=== PATIENT | male | born 1990 | race Caucasian/White ===

== ENCOUNTER 2024-03-28 17:27 | Emergency (ER) | payer OTHER, SELFPAY ==
--- NOTE | ~2024-03-28 | XR_ITS ---
EXAMINATION: XR pelvis 1-2V, XR sacrum coccyx min 2V DATE: 03/28/2024 18:39 INDICATION: Pelvic pain with large posterior hematoma post fall TECHNIQUE: 1. An anteroposterior view of the pelvis was obtained. 2. 3 views of the sacrum and coccyx were obtained including AP views of the sacrum, AP views of the c occyx and lateral views of the sacrum and coccyx. COMPARISON: None. FINDINGS: Bone alignment is normal. Sacral arches are intact. No fractures. Bilateral hip and sacroiliac joint spaces are normal. Visualized lower lumbar spine demonstrates normal vertebral body and disc heights. Subcutaneous edema posterior to the sacrum consistent with likely postoperative contusion. IMPRESSION: 1. No osseous abnormality. Reviewed, dictated and finalized at location A. IMPRESSION: 1. No osseous abnormality. IMPRESSION: 1. No osseous abnormality.
--- NOTE | 2024-03-28 18:26 | ED.GENADULT ---
HPI - General Adult General Chief complaint: Extremity Injury, Lower Stated complaint: Fall Injury/Left Side Source: patient Mode of arrival: ambulatory Limitations: no limitations History of Present Illness HPI narrative: Patient presents for evaluation after experiencing a fall yesterday. He slipped on some wooden steps outside and landed on his buttocks. He did not hit his head. No LOC. He is not on blood thinners. He now reports pain in the posterior pelvis and left buttock. He rates his pain 10/10 in severity. He tried taking ibupofen 800mg without much improvement thereafter. Sitting and palpation of the affected area makes his symptoms worse. Related Data Allergies Allergy/AdvReac Type Severity Reaction Status Date / Time Unable to Assess Allergy Verified 03/28/24 17:43 Review of Systems Review of Systems: CONSTITUTIONAL: Denies fever, chills, or sweats. EYES: Denies visual changes, redness, or discharge. ENT: Denies rhinorrhea, congestion, sore throat, or otalgia. CARDIOVASCULAR: Denies chest pain, palpitations, or edema. RESPIRATORY: Denies cough or dyspnea. GASTROINTESTINAL: Denies abdominal pain, nausea, vomiting, or diarrhea. GENITOURINARY: Denies dysuria or hematuria. SKIN: Denies rash or itching. MUSCULOSKELETAL: Reports pain over posterior pelvis and left buttock NEUROLOGIC: Denies headache, numbness, dizziness, or weakness. PSYCHIATRIC: Denies anxiety or depression. PMFSH Past Medical History Medical History Hyperlipidemia Surgical History Surgical History No pertinent past surgical history Family History Family History Mother Family history non-contributory Social History Social History Smoking status: Never smoker Substance use: never Living arrangements: with family Gender identity (if verbalized by the patient): Male Spiritual care concerns: No Exam Narrative: GENERAL: Well-appearing, well-nourished, and in no acute distress. HEAD: Normocephalic, atraumatic. EYES: PERRLA and EOMI. ENT: Nares clear, no rhinorrhea or epistaxis. Mucous membranes moist. Oropharynx without tonsillar hypertrophy exudate or other lesions. Bilateral TMs pearly [place] nonbulging NECK: Supple. No adenopathy or masses. No carotid bruits or JVD CHEST: Clear to auscultation. No respiratory distress. No wheezes rales or rhonchi HEART: Regular rate and rhythm. No murmur heard. Normal peripheral pulses. ABDOMEN: Soft, nontender, nondistended, normal active bowel sounds. BACK: There is tenderness over the posterior pelvis in the midline and on the left. EXTREMITIES:There is tenderness over the left posterior buttock with a large area of induration. Normal range of motion. No edema. SKIN: Warm, dry, no rash. There is some mild ecchymosis noted to the left posterior buttock NEURO: No focal deficits. Alert and oriented x3. PSYCH: Normal mood and affect. Course Course Emergency Course: This is a 33-year-old male who presented for evaluation of pain in the posterior pelvis and buttock after experiencing a fall yesterday. X-rays were negative for fracture. I contacted on-call orthopedic due to large hematoma to the left buttock. Dr Pa advised I reach out to general surgeon is there was no fracture on imaging. I contacted on-call surgeon, Dr. Cohen. He was in agreement with plans to discharge home. He indicated one of his colleagues could see the patient in clinic within the next week. Patient has no overlying erythema or warmth. I will discharge the patient with a prescription for hydrocodone. In the event that he develops redness/warmth in t he affected area or has fever, chills, nausea or vomiting, he should go to the emergency department. Aubrey mccann
[2024-03-28 18:48] VITALS: BP 107/66; PULSE 123; RESP 16; TEMP 36.4; O2SAT 100
--- NOTE | 2024-03-28 19:13 | PC.NURSE ---
x-ray back, provider speaking to multiple physicians for patient disposition
== END 2024-03-28 19:48 | disposition home or self-care (01) ==
PROVIDERS: Emergency Provider Nurse Practitioner; PCP Internal Medicine
DX: S30.0XXA Contusion of lower back and pelvis, initial encounter (principal); W10.9XXA Fall (on) (from) unspecified stairs and steps, initial encounter; E78.5 Hyperlipidemia, unspecified
CPT/HCPCS: 72170; 72220; 99214; G0463

== ENCOUNTER 2024-11-23 15:54 | Emergency (ER) | payer OTHER, SELFPAY ==
--- OUTSIDE RECORDS SUMMARY | 2024-11-23 15:57 | XMS_ITS | Referral Summary ---
Author Organization [facility] [address] Address [address] [place] [address] Phone Care Team Providers Care Booking Clerk Name Role Phone Anh Low GRACIELA Primary Care Provider Encounters Date Type Department Care Team Description 11/20/2024 10:16 PM CDT - 11/22/2024 1:35 PM CDT Hospital Encounter [address] [address] Jeison Draper MD Bishara, Sam, MD Bitar, Saad R., MD ST elevation myocardial infarction (STEMI), unspecified artery (HCC) (Primary Dx) Discharge Disposition: Discharge to home or self care 11/20/2024 9:45 PM CDT - 11/20/2024 11:59 PM CDT Hospital Encounter [facility] Discharge Disposition: Discharge to home or self care 11/20/2024 10:45 PM CDT - 11/21/2024 12:30 AM CDT Surgery [facility] Cardiac Catheterization Lab [address] [place] [id number] Nino Sin MD LEFT HEART CATHETERIZATION WITH CORONARY ANGIOGRAPHY AND WITH OR WITHOUT LEFT VENTRICULOGRAM [id number] 11/14/2024 2:00 PM CDT Procedure visit [facility] Otolaryngology [address] [place] [address] 11th [place] [address] [place] [id number] Kathy Cardoza Au.D. Sensorineural hearing loss, bilateral (Primary Dx); Tinnitus, bilateral 10/05/2024 Orders Only [facility] [address] [place] [address] Sathya Rich MD Hematoma of buttock (Primary Dx) 10/05/2024 10:45 AM CDT Office Visit [facility] [address] [place] [address] Sathya Rich MD Hematoma of left buttock (Primary Dx) 09/27/2024 Results Follow-Up [facility] [address] [place] [address] Sathya Rich MD US Soft Tissue Lower Back 09/21/2024 3:30 PM CDT - 09/21/2024 11:59 PM CDT Hospital Encounter [facility] [address] [place] [address] Hematoma of left buttock Discharge Disposition: Discharge to home or self care from Last 3 Months Allergies Active Allergy Reactions Criticality Noted Date Comments Cefaclor Cephalexin Cephalosporins Medications aspirin/acetam inophen/caffei ne (EXCEDRIN EXTRA STRENGTH ORAL) Take by mouth Active rosuvastatin (CRESTOR) 40 mg tabletIndicati ons:myocardial infarction prevention Take 1 tablet (40 mg total) by mouth nightly 90 tablet 11/23/19 Active metoprolol tartrate (LOPRESSOR) 25 mg immediate release tabletIndicati ons:cardiovasc ular disease Take 0.5 tablets (12.5 mg total) by mouth every 6 (six) hours 60 tablet 11/23/19 Active ticagrelor (BRILINTA) 90 mg tabletIndicati ons:cardiovasc ular disease Take 1 tablet (90 mg total) by mouth 2 (two) times a day 180 tablet 11/23/19 Active nicotine (NICODERM CQ) [address] 1 patch on the skin daily for 24 hours 90 patch 5 11/24/19 Active aspirin 81 mg chewable tablet Take 1 tablet (81 mg total) by mouth daily 30 tablet 11 05/21/202 5 05/21/20 26 Active ibuprofen (ADVIL,MOTRIN) 600 mg tablet Take 1 tablet (600 mg total) by mouth every 6 (six) hours as needed for pain for up to 30 doses 30 tablet 11/23/19 25 Discontinu ed(Stop Taking at Discharge) acetaminophen (TYLENOL) 500 mg tablet Take 2 tablets (1,000 mg total) by mouth every 8 (eight) hours as needed for pain for up to 20 doses 40 tablet 3 11/23/19 25 Discontinu ed(Stop Taking at Discharge) methocarbamoL (ROBAXIN) 500 mg tablet Take 1 tablet (500 mg total) by mouth 3 (three) times a day as needed for muscle spasms This medication may cause excessive sleepiness. Do not drink alcohol, take other sedating medications, drive a vehicle, until you know how this medication affects you. 15 tablet 3 11/23/19 Discontinu ed(Stop Taking at Discharge) lidocaine (LIDODERM) 5 % Place 1 patch on the skin daily Remove & discard patch within 12 hours or as directed by MD. 30 patch 3 11/23/19 Discontinu ed(Stop Taking at Discharge) naproxen (NAPROSYN) 500 mg tablet Take 1 tablet (500 mg total) by mouth 2 (two) times a day as needed for pain Take with food. 30 tablet 3 11/23/19 Discontinu ed(Stop Taking at Discharge) cyclobenzaprin e (FLEXERIL) 10 mg tablet Take 1 tablet (10 mg total) by mouth 2 (two) times a day as needed for muscle spasms 20 tablet 3 11/23/19 25 Discontinu ed(Stop Taking at Discharge) rosuvastatin (CRESTOR) 20 mg tablet Take 1 tablet (20 mg total) by mouth daily 4 11/23/19 Discontinu ed(Stop Taking at Discharge) Active Problems Problem Noted Date Diagnosed Date STEMI (ST elevation myocardial infarction) 11/20 Tinnitus of right ear 07/20/2016 Familial hypercholesterolemia 09/26/2010 Social History Tobacco Use Types Packs/Day Years Used Date Smoking Tobacco: Every Day Cigarettes Smokeless Tobacco: Never Tobacco Cessation:Ready to Q uit: Not Asked; Counseling Given: Not Answered Alcohol Use Standard Drinks/Week Comments Never 0 (1 standard drink = 0.6 oz pur e alcohol) [facility] Utilities Answer Date Recorded In the past 12 months has th e electric, gas, oil, or water company threatened to shut off services in your home? No 11/21/2024 Social Connection and Isolation Panel [NHANES] A nswer Date Recorded In a typical week, how many times do you talk on the phone with family, friends, or neighbors? Three times a week 11/21/2024 How often do you get togethe r with friends or relatives? Three times a week 11/21/2024 How often do you attend chur ch or zoroastrian services? Never 11/21/2024 Do you belong to any clubs o r organizations such as zoroastrian groups, unions, fraternal or athletic groups, or school groups? No 11/21/2024 How often do you attend meet ings of the clubs or organizations you belong to? Never 11/21/2024 Are you , , di vorced, , never , or living with a partner? Never 11/21/2024 AUDIT-C Answer Date Recorded Q1: How often do you have a drink containing alcohol? Never 11/21/2024 Q2: How many drinks containi ng alcohol do you have on a typical day when you are drinking? Patient does not drink Q3: How often do you have si x or more drinks on one occasion? Never 11/21/2024 Overall Financial Resource Strain (CARDIA) Answe r Date Recorded How hard is it for you to pa y for the very basics like food, housing, medical care, and heating? Not hard at all 11/21/2024 Hunger Vital Sign Answer Date Recorded Within the past 12 months, y ou worried that your food would run out before you got the money to buy more. Never true 11/22/19 Within the past 12 months, t he food you bought just didn't last and you didn't have money to get more. Never true 11/21/2024 PRAPARE - Transportation Answer Date Re corded In the past 12 months, has l ack of transportation kept you from medical appointments or from getting medications? No 11/03 In the past 12 months, has l ack of transportation kept you from meetings, work, or from getting things needed for daily living? No 11/21/2024 Housing Stability Vital Sign Answer Sancho e Recorded In the last 12 months, was t here a time when you were not able to pay the mortgage or rent on time? No 11/21/2024 In the past 12 months, how m any times have you moved where you were living? 0 11/21/2024 At any time in the past 12 m [facility], were you homeless or living in a long term (including now)? No 11/21/2024 Personal Safety Answer Date Recorded Have you ever been in or are you currently in a harmful physical or emotional relationship or is someone making you feel afraid or unsafe? 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 Gender Identity Not on file Sexual Orientation Not on file Last Filed Vital Signs Vital Sign Reading Time Taken Comments Blood Pressure 127/80 11/22/2024 8:09 AM CDT Pulse 75 11/22/2024 1:11 PM CDT Temperature 36.4 C (97.5 F) 11/22/2024 8:09 AM CDT Respiratory Rate 17 11/22/2024 8:09 AM CDT Oxygen Saturation 97% 11/22/2024 8:09 AM CDT Inhaled Oxygen Concentration - - Weight 121 kg (266 lb 12.1 oz) 11/21/2024 3:14 A M CDT Height 170.2 cm (5' 7.01 ) 11/21/2024 10:30 AM C DT Body Mass Index 41.77 11/21/2024 3:14 AM CDT Plan of Treatment Not on file Medical Devices Implanted 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 Device Identifier Shelf Expiration Date Model / Serial / Lot Medtronic Card Vasc Surgery 3.5 X 38mm Jeffy Torrey Rx Coronary Stent [id number] - [id number] Implanted:Qty: 1 on 11/20/2024 by Nino Sin MD at [facility] Medtronic Card Vasc Surgery 04/10/2027 [id number] / / [id number] 001 Elance Angio-Seal Vip 6fr Closere Device [id number] - [id number] Implanted:Qty: 1 on 11/20/2024 by Nino Sin MD at [facility] [id number] / / Procedures Procedure Name Priority Date/Time Associated Diagnosis Comments EGFR Routine 11/22/2024 6:00 AM CDT CBC WITHOUT DIFFERENTIAL Routine 11/22/2024 6:00 AM CDT MAGNESIUM Routine 11/22/2024 6:00 AM CDT PHOSPHORUS Routine 11/22/2024 6:00 AM CDT BASIC METABOLIC PANEL Routine 11/22/2024 6:00 AM CDT HEMOGLOBIN A1C Routine 11/22/2024 6:00 AM CDT TRANSTHORACIC ECHO (TTE) COMPLETE W DOPPLER/CF WO CONTRAST Routine 11/21/2024 7:40 AM CDT PHOSPHORUS Add-On 11/21/2024 4:57 AM CDT MAGNESIUM Add-On 11/21/2024 4:57 AM CDT EGFR Routine 11/21/2024 4:57 AM CDT CBC WITHOUT DIFFERENTIAL Routine 11/21/2024 4:57 AM CDT BASIC METABOLIC PANEL Routine 11/21/2024 4:57 AM CDT LIPID PANEL Routine 11/21/2024 4:57 AM CDT CRITICAL CARE Routine 11/21/2024 12:30 AM CDT POCT GLUCOSE DEVICE Routine 11/21/2024 1 2:20 AM CDT LEFT HEART CATHETERIZATION WITH CORONARY ANGIOGRAPHY AND WITH AND WITHOUT LEFT VENTRICULOGRAM Routine 11/20/2024 11:35 PM CDT POCT ACTIVATED CLOTTING TIME, HIGH RANGE Routine 11/20/2024 11:18 PM CDT APTT Timed 11/20/2024 10:41 PM CDT XR CHEST 1 VIEW ED 11/20/2024 10:35 PM CDT EGFR STAT 11/20/2024 10:34 PM CDT DIFFERENTIAL AUTO STAT 11/20/2024 10: 34 PM CDT PROTIME-INR STAT 11/20/2024 10:34 PM CDT COMPREHENSIVE METABOLIC PANEL STAT 11/20/2024 10:34 PM CDT CBC WITH AUTO DIFFERENTIAL STAT 11/20/2024 10:34 PM CDT PRO B-TYPE NATRIURETIC PEPTIDE STAT 11/20/2024 10:34 PM CDT AK CRITICAL CARE ILL/INJURED PATIENT INIT 30-74 MIN Routine 11/20/2024 10:20 PM CDT ECG 12-LEAD STAT 11/20/2024 10:15 PM CDT AUDBASE RESULTS 11/14/2024 1:49 PM CDT US SOFT TISSUE LOWER BACK Schedule Routine, Read Routine (OP Routine) 09/21/2024 4:22 PM CDT Hematoma of left buttock from Last 3 Months Results * eGFR (11/22/2024 6:00 AM CDT) eGFR >90 >=60 mL/min/1. 73 m2 Comment: Interpretive Data Reference Interval Normal >/= 90 mL/min/1.73m2 Mildly decreased* 60 - 89 mL/min/1.73m2 Mildly to moderately decreased 45 - 59 mL/min/1.73m2 Moderately to severely decreased 30 - 44 mL/min/1.73m2 Severely decreased 15 - 29 mL/min/1.73m2 Kidney Failure < 15 mL/min/1.73m2 *Relative to young adult level Estimated glomerular filtration rate is determined by the 2020 CKD-EPI equation recommended by the National Kidney Foundation (A Unifying Approach to GFR Estimation: Recommendations of the NKF-ASK Task Force on Reassessing the Inclusion of Race in Diagnosing Kidney Disease, JASN 2020). The CKD-EPI equation should not be used for patients with unstable renal function and has not been validated in children and those over 70. Current interpretive data was last reviewed 2021. Blood 11/22/2024 6:00 AM CDT 11/22/2024 6:45 AM CDT Nino Sin MD LAB BLOOD ORDERABLES Final Resul t NONI [id number] [address] Ramírez Department of Laboratories [place] [id number] * (ABNORMAL) CBC without differential (11/22/2024 6:00 AM CDT) WBC 13.42(H) 3.80 - 9.90 K/cumm Hgb 14.6 13.0 - 17.5 g/dL [facility] Hct 45.2 38.9 - 50.3 % [facility] Plt 226 150 - 400 K/cumm [facility] MPV 10.5 9.1 - 12.3 fL [facility] RBC 5.18 4.30 - 5.80 M/cumm [facility] MCV 87.3 81.3 - 96.4 fL [facility] MCH 28.2 27.1 - 33.3 pg [facility] MCHC 32.3 32.3 - 35.7 g/dL [facility] RDW CV 13.7 11.1 - 14.9 % [facility] RDW SD 44.1 35.7 - 48.1 fL [facility] NRBC abs 0.00 0.00 - 0.01 K/cumm [facility] Blood 11/22/2024 6:00 AM CDT 11/22/2024 6:45 AM CDT Nino Sin MD LAB BLOOD ORDERABLES Final Resul t Performing Organization Address [facility] de Phone Number [facility] [id number] [address] [facility] [place] [address] * Phosphorus (11/22/2024 6:00 AM CDT) Phosphorus, pl 3.6 2.3 - 4.5 mg/dL Blood 11/22/2024 6:00 AM CDT 11/22/2024 6:45 AM CDT Nino Sin MD LAB BLOOD ORDERABLES Final Resul t Performing Organization Address [facility] de Phone Number [facility] [phone] [address] [facility] [place] [address] * Magnesium (11/22/2024 6:00 AM CDT) Pathologist [facility] Magnesium 2.1 1.4 - 2.5 mg/dL Blood 11/22/2024 6:00 AM CDT 11/22/2024 6:45 AM CDT Nino Sin MD LAB BLOOD ORDERABLES Final Resul t Performing Organization Address [facility] de Phone Number [facility] [address] [address] [facility] [place] [address] * Hemoglobin A1c (11/22/2024 6:00 AM CDT) Pathologist [facility] Hgb A1C 5.6 4.0 - 5.6 % Estimated Average Glucose 114 mg/dL NONI Comment: The ADA recommends reporting an estimated Average Glucose (eAG) with all Hemoglobin A1c results using the equation derived from a study of 507 normal and diabetic adults. Minority populations were underrepresented and children were not included. (Diabetes Care 31:5242-3483, 2008). The eAG is not equivalent to a fasting glucose. Blood 11/22/2024 6:00 AM CDT 11/22/2024 6:46 AM CDT us Nino Sin MD LAB BLOOD ORDERABLES Final Resul t Performing Organization Address [facility] Co de Phone Number [facility] [phone] [address] Department [place] [address] * Basic metabolic panel (11/22/2024 6:00 AM CDT) Sodium 137 135 - 145 mmol/L Potassium, pl 3.9 3.3 - 4.9 mmol/L [facility] Chloride 103 97 - 110 mmol/L [facility] CO2 22 22 - 32 mmol/L [facility] Anion gap 12 2 - 15 mmol/L [facility] BUN 7 6 - 25 mg/dL [facility] Creatinine 0.82 0.80 - 1.30 mg/dL [facility] Glucose 100 70 - 199 mg/dL [facility] CH Comment: Interpretive Data Fasting glucose >/= 126 mg/dl is diagnostic for diabetes. Fasting is defined as no caloric intake for at least 8 hours. Fasting glucose between 100 mg/dl to 125 mg/dl is diagnostic of prediabetes. In a patient with classic symptoms of hyperglycemia or hyperglycemic crisis, a random glucose >/= 200 mg/dl is diagnostic for diabetes. In the absence of unequivocal hyperglycemia, results should be confirmed by repeat testing. The classification and Diagnosis of Diabetes Diabetes Care 2021; 46: S19-S40. Current interpretive data was last revised 2022. Calcium 8.9 8.5 - 10.3 mg/dL [facility] Blood 11/22/2024 6:00 AM CDT 11/22/2024 6:45 AM CDT Nino Sin MD LAB BLOOD ORDERABLES Final Resul t Performing Organization Address City/[facility]/ZIP Co de Phone Number NONI [phone] [address] [place] [address] * TRANSTHORACIC ECHO (TTE) COMPLETE W DOPPLER/CF WO CONTRAST (11/21/2024 7:40 AM CDT) EF Mod BP 63 % CONS SCIMAGE Anatomical Region Laterality Modality Ultrasound 11/21/2024 6:56 AM CDT Narrative 11/21/2024 8:20 [place] [address] Echocardiogram Report Patient Name: BRANDON DAVIS A : 1990 Study Date: 11/21/2024 6:56:11 AM Gender: M Tech: Location: [id number] Ref Provider: VLADIMIR ROSENTHAL Height(Cm): 170 BSA: 2.39 Weight(Kg): 121 Heart Rate: 90 BP: 128 / 87 Quality: Good Order Provider: VLADIMIR ROSENTHAL PROCEDURES: Echocardiographic Report: Transthoracic echocardiogram with complete 2D, M-Mode, and color Doppler examination. INDICATIONS: Complication of [place]. MEASUREMENTS: 2D/MM Value Range Doppler Value Range EF Mod BP 63 % [ 52 - 72 ] XAVIER Vmax 2.74 cm2 LVIDd 2D 4.28 cm [ 4.20 - 5.80 ] AV Mean PG 5 mmHg LVIDs 2D 2.94 cm [ 2.50 - 4.00 ] AV Peak Jeremy 1.56 m/s [ 1.00 - 1.70 ] LVPWd 2D 1.30 cm [ 0.60 - 1.00 ] AV VTI 30.68 cm IVSd 2D 1.35 cm [ 0.60 - 1.00 ] LVOT Diam 2.13 cm LA Dimension 2D 3.46 cm [ 3.00 - 4.00 ] LVOT Peak Jeremy 1.20 m/s [ 0.70 - 1.10 ] LA Dimension MM 3.77 cm [ 3.00 - 4.00 ] LVOT VTI 22.21 cm AoR Diam 2D 3.37 cm [ 3.10 - 3.70 ] SI LVOT 34.7 ml/m2 [ >= 35.0 ] AoR Diam MM 3.40 cm [ 3.10 - 3.70 ] MV E Peak Jeremy 1.17 m/s [ 0.60 - 1.30 ] MV A Peak Jeremy 0.83 m/s [ 1.00 - 1.20 ] MV Mean PG 2 mmHg MV PHT 35 msec [ 20 - 100 ] MVA PHT 6.33 cm2 MV Decel Time 120 msec [ 104 - 258 ] PV Peak Jeremy 1.06 m/s [ 0.40 - 0.80 ] E` 0.14 m/s E/E` 8.57 2D/MM Value Range Doppler Value Range - FINDINGS: Atrial Septum: Normal atrial septum. Left Ventricle: Normal left ventricular size. Normal left ventricular systolic function with no focal wall motion abnormalities. Mild concentric left ventricular hypertrophy. Ejection fraction is measured at 63 %. Left Atrium: The left atrium is normal in size. Right Ventricle: Normal right ventricular size. Normal right ventricular systolic function. Right Atrium: The right atrium is normal in size. Aortic Valve: Normal structure of the aortic valve. Mitral Valve: Trivial regurgitation of the mitral valve. Pulmonic Valve: Normal structure of the pulmonic valve. Tricuspid Valve: Right Ventricular Systolic Pressure could not be estimated due to inadequate visualization of TR jet. Pericardium: Normal pericardium with no significant pericardial effusion. Aorta: Normal aortic root. IVC: Normal size and normal respiratory collapse consistent with normal right atrial pressure (<5 mmHg). Pulmonary Artery: Normal pulmonary artery size. CONCLUSIONS: Normal left ventricular size. Normal left ventricular systolic function with mild inferior hypokinesis. Mild concentric left ventricular hypertrophy. Ejection fraction is measured at 63 %. Trivial regurgitation of the mitral valve. Right Ventricular Systolic Pressure could not be estimated due to inadequate visualization of TR jet. Electronically Signed By: Otf Jaquez MD 11/21/2024 8:19:30 AM CDT Procedure Note Otf Jaquez MD - 11/21/2024 [place] [address] Echocardiogram Report Patient Name: BRANDON DAVIS A : 1990 Study Date: 11/21/2024 6:56:11 AM Gender: M Tech: Location: [id number] Ref Provider: VLADIMIR ROSENTHAL Height(Cm): 170 BSA: 2.39 Weight(Kg): 121 Heart Rate: 90 BP: 128 / 87 Quality: Good Order Provider: VLADIMIR ROSENTHAL PROCEDURES: Echocardiographic Report: Transthoracic echocardiogram with complete 2D, M-Mode, and color Dopplerexamination. INDICATIONS: Complication of [place]. MEASUREMENTS: 2D/MM Value Range Doppler ValueRange EF Mod BP 63 % [ 52 - 72 ] XAVIER Vmax 2.74cm2 LVIDd 2D 4.28 cm [ 4.20 - 5.80 ] AV Mean PG 5 mmHg LVIDs 2D 2.94 cm [ 2.50 - 4.00 ] AV Peak Jeremy 1.56 m/s[ 1.00 - 1.70 ] LVPWd 2D 1.30 cm [ 0.60 - 1.00 ] AV VTI 30.68cm IVSd 2D 1.35 cm [ 0.60 - 1.00 ] LVOT Diam 2.13cm LA Dimension 2D 3.46 cm [ 3.00 - 4.00 ] LVOT Peak Jeremy 1.20 m/s[ 0.70 - 1.10 ] LA Dimension MM 3.77 cm [ 3.00 - 4.00 ] LVOT VTI 22.21cm AoR Diam 2D 3.37 cm [ 3.10 - 3.70 ] SI LVOT 34.7ml/m2 [ >= 35.0 ] AoR Diam MM 3.40 cm [ 3.10 - 3.70 ] MV E Peak Jeremy 1.17 m/s[ 0.60 - 1.30 ] MV A Peak Jeremy 0.83 m/s [ 1.00 - 1.20 ] MV Mean PG 2 mmHg MV PHT 35 msec [ 20 - 100 ] MVA PHT 6.33 cm2 MV Decel Time 120 msec [ 104 - 258 ] PV Peak Jeremy 1.06 m/s [ 0.40 - 0.80 ] E` 0.14 m/s E/E` 8.57 2D/MM Value Range Doppler ValueRange - FINDINGS: Atrial Septum: Normal atrial septum. Left Ventricle: Normal left ventricular size. Normal left ventricular systolic functionwith no focal wall motion abnormalities. Mild concentric left ventricular hypertrophy.Ejection fraction is measured at 63 %. Left Atrium: The left atrium is normal in size. Right Ventricle: Normal right ventricular size. Normal right ventricular systolicfunction. Right Atrium: The right atrium is normal in size. Aortic Valve: Normal structure of the aortic valve. Mitral Valve: Trivial regurgitation of the mitral valve. Pulmonic Valve: Normal structure of the pulmonic valve. Tricuspid Valve: Right Ventricular Systolic Pressure could not be estimated due toinadequate visualization of TR jet. Pericardium: Normal pericardium with no significant pericardial effusion. Aorta: Normal aortic root. IVC: Normal size and normal respiratory collapse consistent with normal rightatrial pressure (<5 mmHg). Pulmonary Artery: Normal pulmonary artery size. CONCLUSIONS: Normal left ventricular size. Normal left ventricular systolic functionwith mild inferior hypokinesis. Mild concentric left ventricular hypertrophy.Ejection fraction is measured at 63 %. Trivial regurgitation of the mitral valve. Right Ventricular Systolic Pressure could not be estimated due toinadequate visualization of TR jet. Electronically Signed By: Otf Jaquez MD 11/21/2024 8:19:30 AM CDT us Vladimir Rosenthal MD CV ECHO PROCEDURES Final Re sult * eGFR (11/21/2024 4:57 AM CDT) eGFR >90 >=60 mL/min/1. 73 m2 Comment: Interpretive Data Reference Interval Normal >/= 90 mL/min/1.73m2 Mildly decreased* 60 - 89 mL/min/1.73m2 Mildly to moderately decreased 45 - 59 mL/min/1.73m2 Moderately to severely decreased 30 - 44 mL/min/1.73m2 Severely decreased 15 - 29 mL/min/1.73m2 Kidney Failure < 15 mL/min/1.73m2 *Relative to young adult level Estimated glomerular filtration rate is determined by the 2020 CKD-EPI equation recommended by the National Kidney Foundation (A Unifying Approach to GFR Estimation: Recommendations of the NKF-ASK Task Force on Reassessing the Inclusion of Race in Diagnosing Kidney Disease, JASN 2020). The CKD-EPI equation should not be used for patients with unstable renal function and has not been validated in children and those over 70. Current interpretive data was last reviewed 2021. Blood 11/21/2024 4:57 AM CDT 11/21/2024 5:04 AM CDT us Vladimir Rosenthal MD LAB BLOOD ORDERABLES Final Result Performing Organization Address City/[facility]/ZIP Co de Phone Number [facility] [phone] [address] [place] [place] [address] * (ABNORMAL) CBC without differential (11/21/2024 4:57 AM CDT) WBC 16.81(H) 3.80 - 9.90 K/cumm Hgb 14.5 13.0 - 17.5 g/dL [facility] Hct 42.8 38.9 - 50.3 % [facility] Plt 246 150 - 400 K/cumm [facility] MPV 10.1 9.1 - 12.3 fL [facility] RBC 5.01 4.30 - 5.80 M/cumm [facility] MCV 85.4 81.3 - 96.4 fL [facility] MCH 28.9 27.1 - 33.3 pg [facility] MCHC 33.9 32.3 - 35.7 g/dL [facility] RDW CV 13.5 11.1 - 14.9 % [facility] RDW SD 42.5 35.7 - 48.1 fL [facility] NRBC abs 0.00 0.00 - 0.01 K/cumm [facility] Blood 11/21/2024 4:57 AM CDT 11/21/2024 5:08 AM CDT Vladimir Rosenthal MD LAB BLOOD ORDERABLES Final Result [facility] [address] [facility] [place] [address] * Phosphorus (11/21/2024 4:57 AM CDT) Phosphorus, pl 3.8 2.3 - 4.5 mg/dL Blood 11/21/2024 4:57 AM CDT 11/21/2024 8:31 AM CDT Nino Sin MD LAB BLOOD ORDERABLES Final Resul t Performing Organization Address City/[facility] Co de Phone Number NONI [phone] [address] [facility] [place] [address] * Magnesium (11/21/2024 4:57 AM CDT) Magnesium 2.1 1.4 - 2.5 mg/dL Blood 11/21/2024 4:57 AM CDT 11/21/2024 8:31 AM CDT Nino Sin MD LAB BLOOD ORDERABLES Final Resul t Performing Organization Address [facility] de Phone Number NONI [phone] [address] [facility] [place] [address] * (ABNORMAL) Lipid panel (11/21/2024 4:57 AM CDT) Cholesterol 324(H) 30 - 199 mg/dL Comment: Interpretive Data Ages < or = 19 years Acceptable: <170 mg/dL Borderline high: 170-199 mg/dL High: >or= 200 mg/dL Ages > or = 20 years Desirable: <200 mg/dL Borderline high: 200-239 mg/dL High: >or= 240 mg/dL Literature References: 1. Expert Panel on Integrated Guidelines for Cardiovascular Health and Risk Reduction in Children and Adolescents. Pediatrics 2011;128:S213 2. NCEP Expert Panel. Circulation 2004;110:227 Current Interpretive Data was last revised on 2018. Triglycerides 391(H) <=149 mg/dL [facility] Comment: Interpretive Data Ages < or = 9 years Acceptable: <75 mg/dL Borderline high: 75-99 mg/dL High: >or= 100 mg/dL Ages 10 to 20 years Acceptable: <90 mg/dL Borderline high: 90-129 mg/dL High: >or= 130 mg/dL Ages > or = 20 years Desirable: <150 mg/dL Borderline high: 150-199 mg/dL High: 200-499 mg/dL Very high: >or= 499 mg/dL Literature References: 1. Expert Panel on Integrated Guidelines for Cardiovascular Health and Risk Reduction in Children and Adolescents. Pediatrics 2011;128:S213 2. NCEP Expert Panel. Circulation 2004;110:227 Current Interpretive Data was last revised on 2018. HDL 21(L) >=40 mg/dL [facility] Comment: Interpretive Data Ages < or = 19 years Acceptable: >45 mg/dL Borderline low: 40-45 mg/dL Low: <40 mg/dL Ages > or = 20 years Desirable: >or= 60 mg/dL Low: <40 mg/dL Literature References: 1. Expert Panel on Integrated Guidelines for Cardiovascular Health and Risk Reduction in Children and Adolescents. Pediatrics 2011;128:S213 2. NCEP Expert Panel. Circulation 2004;110:227 Current Interpretive Data was last revised on 2018. LDL, calculated 219(H) <=129 mg/dL [facility] Comment: Interpretive Data Ages < or = 19 years Acceptable: <110 mg/dL Borderline high: 110-129 mg/dL High: >or= 130 mg/dL Ages > or = 20 years Optimal: <100 mg/dL Near optimal: 100-129 mg/dL Borderline high: 130-159 mg/dL High: >160 mg/dL Calculated using the Otto LDL-C estimating equation. This equation was implemented on 2024. Prior to this date LDL-C was estimated using the Friedewald equation. Literature References: 1. Expert Panel on Integrated Guidelines for Cardiovascular Health and Risk Reduction in Children and Adolescents. Pediatrics 2011;128:S213 2. NCEP Expert Panel. Circulation 2004;110:227 3. Otto Alexander. NANCY Cardiol. 2020 November 02;5(5):540-548. doi: [email or web address] Current Interpretive Data was last revised on 2024. Non-HDL Cholesterol 303 mg/dL [facility] Comment: Interpretive Data Ages < or = 19 years Acceptable: <120 mg/dL Borderline high: 120-144 mg/dL High: >145 mg/dL Ages > or = 20 years When triglycerides are >200 mg/dL, Non-HDL cholesterol is a secondary target of therapy with treatment goals that are 30 mg/dL greater than the LDL cholesterol target. Literature References: 1. Expert Panel on Integrated Guidelines for Cardiovascular Health and Risk Reduction in Children and Adolescents. Pediatrics 2011;128:S213 2. NCEP Expert Panel. Circulation 2004;110:227 Current Interpretive Data was last revised on 2018. Chol/HDL ratio 15 [facility] Blood 11/21/2024 4:57 AM CDT 11/21/2024 5:04 AM CDT us Nino iSn MD LAB BLOOD ORDERABLES Final Resul t [facility] [id number] Department [place] [address] * (ABNORMAL) Basic metabolic panel (11/21/2024 4:57 AM CDT) Sodium 139 135 - 145 mmol/L Potassium, pl 4.0 3.3 - 4.9 mmol/L [facility] Chloride 105 97 - 110 mmol/L [facility] CO2 23 22 - 32 mmol/L [facility] Anion gap 11 2 - 15 mmol/L [facility] BUN 9 6 - 25 mg/dL [facility] Creatinine 0.78(L) 0.80 - 1.30 mg/dL [facility] Glucose 104 70 - 199 mg/dL [facility] Comment: Interpretive Data Fasting glucose >/= 126 mg/dl is diagnostic for diabetes. Fasting is defined as no caloric intake for at least 8 hours. Fasting glucose between 100 mg/dl to 125 mg/dl is diagnostic of prediabetes. In a patient with classic symptoms of hyperglycemia or hyperglycemic crisis, a random glucose >/= 200 mg/dl is diagnostic for diabetes. In the absence of unequivocal hyperglycemia, results should be confirmed by repeat testing. The classification and Diagnosis of Diabetes Diabetes Care 202; 46: S19-S40. Current interpretive data was last revised 2022. Calcium 8.7 8.5 - 10.3 mg/dL [facility] Blood 11/21/2024 4:57 AM CDT 11/21/2024 5:04 AM CDT us Vladimir Rosenthal MD LAB BLOOD ORDERABLES Final Result [facility] [address] [facility] [place] [address] * Critical Care (11/21/2024 12:30 AM CDT) Narrative Vladimir Rosenthal MD - 11/21/2024 12:30 AM CDT Vladimir Rosentahl MD 11/21/2024 12:37 AM Critical Care Performed by: Vladimir Rosenthal MD Authorized by: Vladimir Rosenthal MD CRITICAL CARE: Team: [facility] Shift: AM Level of Billing: Critical Care My time spent with this patient was 45 minutes: Critical Provider Statement: I have seen and examined the patient on this day of service. I have reviewed and confirmed the history, physical exam, laboratory and radiologic data as documented in the signed ICU note. I have reviewed and discussed my treatment plan with the ICU team and other medical/tax credit leasing consultant staff, making frequent assessments and decisions regarding this patient's complex medical care. Critical Care time was exclusive of time spent performing separately billed procedures, treating other patients, and teaching. This time was in addition to and separate from critical care provided by other practitioners in my group on this day of service. Critical Care was necessary to treat or prevent imminent or life-threatening deterioration of the following conditions: ST-Elevation myocardial infarction (STEMI) This time was spent by me doing the following: Initiation/management of anti-platelet agents us Vladimir Rosenthal MD IN CLINIC/BEDSIDE ORDERABLE S Final Result * POCT glucose (11/21/2024 12:20 AM CDT) [facility] Signature Glucose, POC 116 70 - 199 mg/dL POC Performer [phone] [facility] Blood 11/21/2024 12:2 0 AM CDT 11/21/2024 12:20 AM CDT us Nino Sin MD LAB POCT ORDERABLES - DEVICE Fin al Result [facility] [id number] [place] [address] * LEFT HEART CATHETERIZATION WITH CORONARY ANGIOGRAPHY AND WITH AND WITHOUT LEFT VENTRICULOGRAM (11/20/2024 11:35 PM CDT) Anatomical Region Laterality Modality X-Ray Angiograph y 11/20/2024 Narrative 11/21/2024 8:52 AM CDT [facility] Job ID: [id number] [facility] Document ID: [id number] Dictated date/time: [id number] LEFT HEART CATHETERIZATION. HISTORY OF PRESENT ILLNESS This is a 34-year-old gentleman presents to the hospital with chest pain, found to have inferior ST elevation NJ. Referred for urgent left heart catheterization. PROCEDURE PERFORMED 1. Left heart catheterization. 2. Selective coronary angiography. 3. Left ventriculography with pull-back. 4. stent placement to mid RCA. 5. Vascular closure device placement. PROCEDURE TECHNIQUE After informed consent the patient was brought to catheterization laboratory, prepped and draped in usual sterile manner. Conscious sedation was administered by the cath lab radiology technician staff. See procedure log for further details. Total of 2 mg of Versed and 50 mcg of fentanyl were given. Total sedation time 35 minutes Vascular access was obtained using the right common femoral artery. local anesthesia was applied using 2% lidocaine, 6-Mexican sheath advanced over wire without difficulty. PCI of the right coronary artery was then performed followed by selective left coronary angiography and left ventriculography was performed . Diagnostic angiography was performed using combination of using a 5-Mexican JL 4catheter and JR4 guide as well as 5 Mexican pigtail catheter. At the end of procedure the arterial sheath was removed and vascular access was closed using Angio-Seal with good hemostasis FINDINGS: HEMODYNAMICS: Resting living pressure 92/14 mmHg. Estimated pressure 92/54 mmHg. LEFT VENOGRAPHY: Left ventriculography obtained in VELAZQUEZ projection. The patient has normal systolic function. Ejection fraction 55% with mild mitral regurgitation. LEFT CORONARY ARTERY: Selective views of left main coronary artery angiographically free of stenosis left circumflex was normal. The high takeoff 1st obtuse marginal had mild disease. The left anterior descending had mild disease in the mid segment. RIGHT CORONARY ARTERY: Right coronary artery was a dominant vessel. It had had acute occlusion in the mid section. PCI TO RCA: Utilizing JR4 guide a whisper medium support procedure to distal RCA was used to cross the lesion. Initial balloon inflation was performed 2.5 x 12 mm balloon achieving ERICH-3 flow distally and to define underlying 95% long lesion. This was treated successfully after loading the patient with Brilinta and heparin as therapeutic levels with 3.5 x 38 mm drug-eluting stents inflated to 14 atmospheric pressures. Then the 4.0 x 12 noncompliant balloon inflated to 20 atmospheric pressure in the proximal section achieving ERICH flow distally. There was resolution of the patient's chest pain and ST changes. PROCEDURE COMMENT No in-lab complication. PROCEDURE Right common femoral artery. Hemostasis achieved using 6-Mexican Angio-Seal device. IMPRESSION 1. Coronary artery disease with acute occlusion of the mid right coronary artery consistent with inferior ST-elevation NJ. 2. Normal LV function, ejection fraction 55%. 3. Successful drug-eluting stent placement to mid RCA. With re-establishment of ERICH 3 flow 4. Successful vascular access closure RECOMMENDATION 1. Admit to ICU. 2. Continue dual antiplatelet therapy with aspirin and Brilinta 3. Initiate beta nathalia high-intensity statin. Nino Sin MD Job ID/Internal Job ID: [id number] Nino Sin MD CV CARDIAC CATH PROCEDURES Final Result * (ABNORMAL) POC Activated Clotting Time, High Range (11/20/2024 11:18 PM CDT) ACT 362(H) 87 - 138 sec POC Performer [id number] [facility] Blood 11/20/2024 11:1 8 PM CDT 11/20/2024 11:18 PM CDT Nino Sin MD LAB BLOOD ORDERABLES Final Resul t [facility] [address] [place] [address] * aPTT (11/20/2024 10:41 PM CDT) aPTT 32 28 - 38 sec Comment: Interpretive Data Heparin therapeutic range: 66.0 - 100.0 seconds. Range based on correlation with therapeutic heparin activity range of 0.3 - 0.7 Units/mL. Current interpretive data was last revised on 2023. Blood 11/20/2024 10:4 1 PM CDT 11/20/2024 10:41 PM CDT Narrative [facility] - 11/20/2024 10:53 PM CDT STAT PTT timing: - Draw 6 hours after heparin infusion initiation - Draw 6 hours after every dose change until 2 consecutive PTTs are therapeutic - Once 2 consecutive PTTs are therapeutic, obtain with daily labs until infusion is discontinued - - Restart every 6 hour lab draws and follow instructions accordingly if PTT is outside of therapeutic range Do not draw lab from IV line that is actively infusing heparin. Use the opposite arm. If arm with actively infusing heparin must be used, pause the infusion for at least 2 minutes, and draw specimen below the IV site. For patients with a central venous catheter (CVC), lab must be drawn peripherally (not from CVC). us Jeison Draper MD LAB BLOOD ORDERABLES Final Result [facility] [id number] [place] [address] * XR Chest 1 View (11/20/2024 10:35 PM CDT) Anatomical Region Laterality Modality Body, Chest N/A Computed Radiogr aphy 11/21/2024 8:12 AM CDT Impressions 11/21/2024 8:12 AM CDT No pneumothorax or pleural effusion. Cardiomediastinal silhouette within normal limits. Prominence of interstitial markings in the perihilar region and bilateral lower lobe suggestive of interstitial pulmonary edema. No acute osseous abnormality. Electronically signed by: Solo Nixon II, D.O. Narrative 11/21/2024 8:12 AM CDT EXAMINATION: XR CHEST 1 VIEW DATE: 11/20/2024 10:30 PM INDICATION: Pain. COMPARISON: 05/26/2022. Procedure Note Solo Nixon II, DO - 11/21/2024 EXAMINATION: XR CHEST 1 VIEW DATE: 11/20/2024 10:30 PM INDICATION: Pain. COMPARISON: 05/26/2022. IMPRESSION: No pneumothorax or pleural effusion. Cardiomediastinal silhouette within normal limits. Prominence of interstitial markings in the perihilar region and bilateral lower lobe suggestive of interstitial pulmonary edema. No acute osseous abnormality. Electronically signed by: Solo Nixon II, D.O. Jeison Draper MD IMG XR PROCEDURES Final Re sult * eGFR (11/20/2024 10:34 PM CDT) eGFR >90 >=60 mL/min/1. 73 m2 Comment: Interpretive Data Reference Interval Normal >/= 90 mL/min/1.73m2 Mildly decreased* 60 - 89 mL/min/1.73m2 Mildly to moderately decreased 45 - 59 mL/min/1.73m2 Moderately to severely decreased 30 - 44 mL/min/1.73m2 Severely decreased 15 - 29 mL/min/1.73m2 Kidney Failure < 15 mL/min/1.73m2 *Relative to young adult level Estimated glomerular filtration rate is determined by the 2020 CKD-EPI equation recommended by the National Kidney Foundation (A Unifying Approach to GFR Estimation: Recommendations of the NKF-ASK Task Force on Reassessing the Inclusion of Race in Diagnosing Kidney Disease, JASN 202). The CKD-EPI equation should not be used for patients with unstable renal function and has not been validated in children and those over 70. Current interpretive data was last reviewed 2021. Blood 11/20/2024 10:3 4 PM CDT 11/20/2024 10:42 PM CDT Jeison Draper MD LAB BLOOD ORDERABLES Final Result [facility] [id number] [place] [address] * (ABNORMAL) Differential, auto (11/20/2024 10:34 PM CDT) Neutrophil abs 8.69(H) 1.50 - 6.50 K/cumm Imm gran abs 0.06 0.00 - 0.10 K/cumm [facility] Lymphocyte abs 3.71(H) 0.80 - 3.30 K/cumm [facility] Monocyte abs 0.85(H) 0.20 - 0.80 K/cumm [facility] Eosinophil abs 0.16 0.00 - 0.50 K/cumm [facility] Basophil abs 0.07 0.00 - 0.10 K/cumm [facility] Neutrophil pct 64.2 % [facility] Comment: Interpretive Data Percent cell count reference ranges are not reported, since discordance with absolute values may lead to misinterpretation of CBC data. Current Interpretive Data was last revised on 2017. Imm gran pct 0.4 % [facility] Comment: Interpretive Data Percent cell count reference ranges are not reported, since discordance with absolute values may lead to misinterpretation of CBC data. Current Interpretive Data was last revised on 2017. Lymphocyte pct 27.4 % [facility] Comment: Interpretive Data Percent cell count reference ranges are not reported, since discordance with absolute values may lead to misinterpretation of CBC data. Current Interpretive Data was last revised on 2017. Monocyte pct 6.3 % [facility] Comment: Interpretive Data Percent cell count reference ranges are not reported, since discordance with absolute values may lead to misinterpretation of CBC data. Current Interpretive Data was last revised on 2017. Eosinophil pct 1.2 % [facility] Comment: Interpretive Data Percent cell count reference ranges are not reported, since discordance with absolute values may lead to misinterpretation of CBC data. Current Interpretive Data was last revised on 2017. Basophil pct 0.5 % [facility] Comment: Interpretive Data Percent cell count reference ranges are not reported, since discordance with absolute values may lead to misinterpretation of CBC data. Current Interpretive Data was last revised on 2017. Blood 11/20/2024 10:3 4 PM CDT 11/20/2024 10:41 PM CDT us Jeison Draper MD LAB BLOOD ORDERABLES Final Result Performing Organization Address [facility] Co de Phone Number [facility] [id number] [place] [address] * Pro B-type natriuretic peptide (11/20/2024 10:34 PM CDT) NT-proBNP <36 <=300 pg/mL Comment: Interpretive Comments: A. Dyspnea in Acute Care Setting All Ages: < 300 pg/ml, acute heart failure unlikely. < 50 yrs: 300 - 450 pg/ml, further investigation warranted. > 450 pg/ml, acute heart failure likely. 50 - 74 yrs: 300 - 900 pg/ml, further investigation warranted. > 900 pg/ml, acute heart failure likely . > or = 75 yrs: 450 - 1800 pg/ml, further investigation warranted. > 1800 pg/ml, acute heart failure likely. B. Non-acute Setting < 75 yrs < 125 pg/ml, rules out heart failure. > or = 125 pg/ml, further investigation warranted. > or = 75 yrs < 450 pg/ml, rules out heart failure. > or = 450 pg/ml, further investigation warranted. - Knowledge of each individual patient's NT-proBNP range may be more useful than using similar cut-points for every patient. Please note that marked elevations in NT-proBNP levels may be observed in state other than Left Ventricular Congestive Failure, including: acute coronary syndromes, right heart strain/failure (including pulmonary embolism and cor pulmonale), critical illness, renal failure, as well as advanced age. - References: 1. Jaymie MIRANDA et.al. Eur Heart J. 2006:27:330-337. 2. Cornelia RW, Candei AM. J. AM Gabriela Cardiol: Cardiovasc Imag. 2009;2: 216- 225. Interpretive Data Last Revised Date: 2018. Blood 11/20/2024 10:3 4 PM CDT 11/20/2024 10:42 PM CDT Jeison Draper MD LAB BLOOD ORDERABLES Final Result [facility] [address] Department [place] [address] * (ABNORMAL) CBC with auto differential (11/20/2024 10:34 PM CDT) Pathologist [facility] WBC 13.54(H) 3.80 - 9.90 K/cumm Hgb 16.2 13.0 - 17.5 g/dL [facility] Hct 49.9 38.9 - 50.3 % [facility] Plt 288 150 - 400 K/cumm [facility] MPV 10.1 9.1 - 12.3 fL [facility] RBC 5.79 4.30 - 5.80 M/cumm [facility] MCV 86.2 81.3 - 96.4 fL [facility] MCH 28.0 27.1 - 33.3 pg [facility] MCHC 32.5 32.3 - 35.7 g/dL [facility] RDW CV 13.6 11.1 - 14.9 % [facility] RDW SD 42.7 35.7 - 48.1 fL [facility] NRBC abs 0.00 0.00 - 0.01 K/cumm [facility] Blood 11/20/2024 10:3 4 PM CDT 11/20/2024 10:41 PM CDT Jeison Draper MD LAB BLOOD ORDERABLES Final Result [facility] [id number] Department of Laboratories [place], [place] [id number] * Protime-INR (11/20/2024 10:34 PM CDT) Pathologist [facility] PT 11.2 9.7 - 13.0 sec INR 1.04 0.90 - 1.20 [facility] Comment: Interpretive data Oral anticoagulant therapeutic ranges: Venous thromboembolism prophylaxis or treatment: 2.0-3.0 CARDIOLOGY Standard range: 2.0-3.0 High-intensity range: 2.5-3.5 Refer to indication-specific guidelines for appropriate target ranges for prosthetic heart valve replacement. Current interpretive data was last revised on 2019. Blood 11/20/2024 10:3 4 PM CDT 11/21/2024 3:07 PM CDT us Jeison Draper MD LAB [place]LO[place] [address] [address] Department [place] [address] * (ABNORMAL) Comprehensive metabolic panel (11/20/2024 10:34 PM CDT) Sodium 144 135 - 145 mmol/L Potassium, pl 3.0(L) 3.3 - 4.9 mmol/L [facility] Chloride 112(H) 97 - 110 mmol/L [facility] CO2 22 22 - 32 mmol/L [facility] Anion gap 10 2 - 15 mmol/L [facility] BUN 8 6 - 25 mg/dL [facility] Creatinine 0.76(L) 0.80 - 1.30 mg/dL [facility] Glucose 105 70 - 199 mg/dL [facility] Comment: Interpretive Data Fasting glucose >/= 126 mg/dl is diagnostic for diabetes. Fasting is defined as no caloric intake for at least 8 hours. Fasting glucose between 100 mg/dl to 125 mg/dl is diagnostic of prediabetes. In a patient with classic symptoms of hyperglycemia or hyperglycemic crisis, a random glucose >/= 200 mg/dl is diagnostic for diabetes. In the absence of unequivocal hyperglycemia, results should be confirmed by repeat testing. The classification and Diagnosis of Diabetes Diabetes Care 2021; 46: S19-S40. Current interpretive data was last revised 2022. Calcium 7.1(L) 8.5 - 10.3 mg/dL [facility] Bilirubin, total <0.2 0.1 - 1.2 mg/dL [facility] Protein, pl 5.5(L) 6.5 - 8.5 g/dL [facility] Albumin 3.4(L) 3.5 - 5.0 g/dL [facility] Alk phos 65 40 - 130 Units/L [facility] ALT 41 7 - 55 Units/L [facility] AST 21 10 - 50 Units/L [facility] Blood Venous blood specimen / Unknown 11/20/2024 10:34 PM CDT 11/20/2024 10:42 PM CDT us Jeison Draper MD LAB BLOOD [place] [address] [address] [place] [address] * [place] CRITICAL CARE ILL/INJURED PATIENT INIT 30-74 MIN (11/20/2024 10:20 PM CDT) Narrative Jeison Draper MD - 11/20/2024 10:20 PM CDT Jeison Draper MD 11/20/2024 10:45 PM Critical Care Performed by: Jeison Draper MD Authorized by: Jeison Draper MD Critical care provider statement: As reflected in the history, physical exam, orders, notes, and/or MDM, I was personally present while the patient was critically ill and provided critical care services for 45 minutes, excluding time involved in separately billable procedures. Critical care was necessary to treat or prevent imminent or life-threatening deterioration of the following condition(s): acute myocardial infarction Critical care was time spent by me providing the following: continuous telemetry, continuous pulse oximetry, serial bedside patient exams, serial laboratory checks and interpretation of bedside monitors, imaging, and arterial/venous lab draws supplemental oxygen initiation, monitoring, and/or titration of anticoagulants I provided emergent necessary critical care medicine services to this patient. I ordered and reviewed test results and/or imaging studies. I spent time discussing the management of this critically ill patient with consultants and the medical staff. I spent time discussing the management and therapeutic options for this critically ill patient with the patient themselves or with the appropriate designated surrogate decision-maker. I spent time documenting in the medical record. Jeison Draper MD IN CLINIC/BEDSIDE ORDERABL ES Final Result * ECG 12 lead (11/20/2024 10:15 PM CDT) 11/20/2024 10:1 5 PM CDT Narrative [facility] - 11/21/2024 7:44 AM CDT Vent Rate: 96 bpm RR Interval: 625 msec AK Interval: 225 msec QRS Duration: 112 msec QT Interval: 353 msec QTC Interval: 406 msec P-R-T Wheelwright: 26 - 88 - 84 degrees IMPRESSION: SINUS RHYTHM WITH FIRST DEGREE AV BLOCK MODERATE INTRAVENTRICULAR CONDUCTION DELAY [110+ ms QRS DURATION] MARKED ST ELEVATION, CONSIDER INFERIOR INJURY [MARKED ST ELEVATION W/O NORMALLY INFLECTED T-WAVE IN II/aVF] MARKED ST ELEVATION, CONSIDER ANTEROLATERAL INJURY [MARKED ST ELEVATION W/O NORMALLY INFLECTED T-WAVE IN V3-V6] Compared to prior EKG ST-elevation inferolateral leads are new Electronically Signed By: Alfred Gutierrez MD [facility] Jeison Draper MD ECG ORDERABLES Final Resu lt [facility] * [employer] Results (11/14/2024 1:49 PM CDT) Provider Scanning AUDIOLOGY SERVICES ORDERABLES Final Result * US Soft Tissue Lower Back (09/21/2024 4:22 PM CDT) Anatomical Region Laterality Modality Abdomen N/A Ultrasound 09/27/2024 8:35 AM CDT Narrative 09/27/2024 8:38 AM CDT EXAM DESCRIPTION: US SOFT TISSUE LOWER BACK REASON FOR STUDY: hematoma, Hematoma of left buttock TECHNIQUE: A Dynamic assessment was performed of the soft tissues of the left buttock by the data acquisition technician, with selected grayscale and color Doppler images acquired and recorded in PACS. COMPARISON: 06/29/2024. FINDINGS: There is a 7.4 x 1.5 x 6.2 cm heterogeneous collection again demonstrated within the soft tissues of the left gluteal region. Previously this measured 7.9 x 2.8 x 7.9 cm. This finding is indeterminate by ultrasound though has diminished in size compared to prior study. In light of patient history, hematoma remains atop the differential diagnosis. There is no other focal lesion. IMPRESSION: 1. Interval decrease in size of previously documented heterogeneous collection in the left gluteal region, compatible with though not definitive for hematoma. Continued imaging follow-up to document resolution recommended. THIS IS AN ELECTRONICALLY VERIFIED FINAL REPORT 09/27/2024 8:38 AM - Electronically signed by Trice Birmingham M.D. TW: STEFANIE Report ID: [id number] Reading Location: [id number] Procedure Note Trice Birmingham MD - 09/27/2024 EXAM DESCRIPTION: US SOFT TISSUE LOWER BACK REASON FOR STUDY: hematoma, Hematoma of left buttock TECHNIQUE: A Dynamic assessment was performed of the soft tissues of theleft buttock by the data acquisition technician, with selected grayscale and color Dopplerimages acquired and recorded in PACS. COMPARISON: 06/29/2024. FINDINGS: There is a 7.4 x 1.5 x 6.2 cm heterogeneous collection again demonstrated within the soft tissues of the left gluteal region. Previously thismeasured 7.9 x 2.8 x 7.9 cm. This finding is indeterminate by ultrasound thoughhas diminished in size compared to prior study. In light of patient history, hematoma remains atop the differential diagnosis. There is no other focal lesion. IMPRESSION: 1. Interval decrease in size of previously documented heterogeneous collection in the left gluteal region, compatible with though notdefinitive for hematoma. Continued imaging follow-up to document resolutionrecommended. THIS IS AN ELECTRONICALLY VERIFIED FINAL REPORT 09/27/2024 8:38 AM - Electronically signed by Trice Birmingham M.D. TW: [email or web address] Report ID: [id number] Reading Location: [id number] us Sathya Rich MD [facility] [place] US PROCEDURES F inal Result from Last 3 Months Insurance [facility] [place] [id number] [place] [id number] [place] [address] [place] [id number] Advance Directives For more information, please contact: [phone] Documents on File Type Date Recorded Patient Court Orderly Expl anation ADVANCE DIRECTIVE 11/23/2024 11:20 AM MARIO R OF [employer] * Full Code (Latest Code Status on File) Date Activated Date Inactivated Comments 11/21/2024 12:33 AM 11/22/2024 5:40 PM Care Teams Booking Clerk Relationship Specialty Start Date End Date Anh Low NP [address] [place] [address] DR ARCHIBALD B [facility] [place] [address] [place] [address] PCP - General Nurse Practitioner 10/05/24
--- OUTSIDE RECORDS SUMMARY | 2024-11-23 15:57 | XMS_ITS | Clinical Summary ---
Author Organization CC [facility] [address] Address [address] [place] [address] Phone Care Team Providers Care Client Service Professional Name Role Phone Anh Low NP Primary Care Provider Allergies Active Allergy Reactions Criticality Noted Date Comments Cefaclor Cephalexin Cephalosporins Medications aspirin/acetam inophen/caffei ne (EXCEDRIN EXTRA STRENGTH ORAL) Take by mouth Active rosuvastatin (CRESTOR) 40 mg tabletIndicati ons:myocardial infarction prevention Take 1 tablet (40 mg total) by mouth nightly 90 tablet 11/23/19 26 Active metoprolol tartrate (LOPRESSOR) 25 mg immediate release tabletIndicati ons:cardiovasc ular disease Take 0.5 tablets (12.5 mg total) by mouth every 6 (six) hours 60 tablet 11/23/19 26 Active ticagrelor (BRILINTA) 90 mg tabletIndicati ons:cardiovasc ular disease Take 1 tablet (90 mg total) by mouth 2 (two) times a day 180 tablet 11/23/19 26 Active nicotine (NICODERM CQ) [address] 1 patch on the skin daily for 24 hours 90 patch 11/24/19 26 Active aspirin 81 mg chewable tablet Take 1 tablet (81 mg total) by mouth daily 30 tablet 11/23/19 26 Active ibuprofen (ADVIL,MOTRIN) 600 mg tablet Take 1 tablet (600 mg total) by mouth every 6 (six) hours as needed for pain for up to 30 doses 30 tablet 3 11/23/19 25 Discontinu ed(Stop Taking [...] within 12 hours or as directed by . 30 patch 3 11/23/19 25 Discontinu ed(Stop Taking at Discharge) naproxen (NAPROSYN) 500 mg tablet Take 1 tablet (500 mg total) by mouth 2 (two) times a day as needed for pain Take with food. 30 tablet 3 11/23/19 25 Discontinu ed(Stop Taking at Discharge) cyclobenzaprin e [...] of right ear 07/20/2016 Familial hypercholesterolemia 09/26/2010 Encounters Date Type Department Care Team Description 11/20/2024 10:45 PM CDT - 11/21/2024 12:30 AM CDT Surgery [facility] Cardiac Catheterization Lab [address] [place] [address] Nino Sin MD LEFT HEART CATHETERIZATION WITH CORONARY ANGIOGRAPHY AND WITH OR WITHOUT LEFT VENTRICULOGRAM [id number] 11/20/2024 10:16 PM CDT - 11/22/2024 1:35 PM CDT Hospital Encounter [id number] [place] [address] Jeison Draper MD Bishara, Sam, MD Bitar, Saad R., MD ST elevation myocardial infarction (STEMI), unspecified artery (HCC) (Primary Dx) Discharge Disposition: Discharge to home or self care 11/20/2024 9:45 PM CDT - 11/20/2024 11:59 PM CDT Hospital Encounter [facility] B[facility] Discharge Disposition: Discharge to home or self care 11/14/2024 2:00 PM CDT Procedure visit [facility] Otolaryngology [address] [place] [address] Medicine 11th [place] [address] [place] [address] Kathy Cardoza Au.D. Sensorineural hearing loss, bilateral (Primary Dx); Tinnitus, bilateral 10/05/2024 10:45 AM CDT Office Visit [address] [place] [address] Sathya Rich MD Hematoma of left buttock (Primary Dx) 10/05/2024 Orders Only [address] [place] [address] Sathya Rich MD Hematoma of buttock (Primary Dx) 09/27/2024 Results Follow-Up [address] [place] [address] Sathya Rich MD Soft Tissue Lower Back 09/21/2024 3:30 PM CDT - 09/21/2024 11:59 PM CDT Hospital Encounter [facility] [address] [place] [address] Hematoma of left buttock Discharge Disposition: Discharge to home or self care from Last 3 Months Surgical History Surgery Date Site/Laterality Comments TONSILECTOMY, ADENOIDECTOMY, BILATERAL MYRINGOTOMY AND TUBES CARDIAC CATHETERIZATION 11/20/2024 - 11/21/2024 N/A Procedure: LEFT HEART CATHETERIZATION WITH CORONARY ANGIOGRAPHY AND WITH OR WITHOUT LEFT VENTRICULOGRAM [id number]; Surgeon: Nino Sin MD; Location: CARDIAC CHIEF CHEMIST; Service: Cardiovascular; Laterality: N/A; Medical devices from this surgery are in the Medical Devices section. Medical History Medical History Date Comments Deaf Adhd Hyperlipidemia Social History Tobacco Use Types Packs/Day Years Used Date Smoking Tobacco: Every Day Cigarettes Smokeless Tobacco: Never Tobacco Cessation:Ready to Q uit: Not Asked; Counseling Given: Not Answered Alcohol Use Standard Drinks/Week Comments Never 0 (1 standard drink = 0.6 oz pur e alcohol) [facility] Utilities Answer Date Recorded In the past 12 months has [email or web address] electric, gas, oil, or water Ensa threatened to shut off services in your [...] week 11/21/2024 How often do you attend [facility] or holiness services? Never 11/21/2024 Do you belong to any clubs o r organizations such as tenriism groups, unions, fraternal or athletic groups, or [...] money to buy more. Never true 11/22/19 25 Within the past 12 months, t he [...] any time in the past 12 m [facility], were you homeless or living in a residential (including now)? No 11/21/2024 Personal Safety Answer Date Recorded Have you ever been in or are you currently in a harmful physical or emotional relationship or is someone making you feel afraid or unsafe? 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 Gender Identity Not on file Sexual Orientation Not on file Obstetrics History Last Filed Vital Signs Vital Sign Reading [...] 11/21/2024 3:14 AM CDT Plan of Treatment Health Maintenance Due Date Last Done Comments Depression Screening 1992 Hepatitis C Screening 1992 Varicella Vaccines (1 of 2 - 13+ 2-dose series) 2005 Regular Well Visit/Exam 18-64 2010 Pneumococcal vaccine <65 (1 of 2 - PCV) 10/02/2011 DTaP/Tdap/Td Vaccine (8 - Td or Tdap) 05/30/2016 05/30/2006, 10/28/2005, 05/15/2004, Additional history exists Influenza Vaccine (Season Ended) 2025 06/13/2014, 05/19/2007, 05/08/2004 Hepatitis B Screening Completed 05/11/1993 , 05/05/1993, 01/30/1993, Additional history exists HPV Vaccines Aged Out No longer eligi ble based on patient's age to complete this topic Medical Devices Implanted Type Area Tank Cooper Device Identifier Shelf Expiration Date Model / Serial / Lot [facility] Vas Surgery 3.5 X 38mm Jeffy [place] Rx Coronary Stent [id number] - [id number] Implanted:Qty: 1 on 11/20/2024 by Nino Sin MD at [facility] Vasc Surgery 04/10/2027 [id number] / / [id number] [employer] Pam Angio-Seal Vip 6fr Closere Device [id number] - [id number] Implanted:Qty: 1 on 11/20/2024 by Nino Sin MD at [facility] Liazon [facility] [id number] / / Procedures Procedure Name Priority Date/Time [...] NATRIURETIC PEPTIDE STAT 11/20/2024 10:34 PM CDT [place] CRITICAL CARE ILL/INJURED PATIENT INIT 30-74 MIN [...] 6:00 AM CDT 11/22/2024 6:45 AM CDT us Nino Sin MD LAB BLOOD ORDERABLES Final Resul t NONI [address] [address] Department [place] [employer] [address] * (ABNORMAL) CBC without differential (11/22/2024 6:00 AM CDT) Pathologist [facility] WBC 13.42(H) 3.80 - 9.90 K/cumm Hgb 14.6 13.0 - 17.5 g/dL [facility] Hct 45.2 38.9 - 50.3 % [facility] Plt 226 150 - 400 K/cumm [facility] MPV 10.5 9.1 - 12.3 fL [facility] RBC 5.18 4.30 - 5.80 M/cumm [facility] MCV 87.3 81.3 - 96.4 fL [facility] MCH 28.2 27.1 - 33.3 pg [facility] MCHC 32.3 32.3 - 35.7 g/dL [facility] RDW CV 13.7 11.1 - 14.9 % [facility] RDW SD 44.1 35.7 - 48.1 fL [facility] NRBC abs 0.00 0.00 - 0.01 K/cumm [facility] Blood 11/22/2024 6:00 AM CDT 11/22/2024 6:45 AM CDT Nino Sin MD LAB BLOOD ORDERABLES Final Resul t Performing Organization Address City/[facility] Co de Phone Number [facility] [address] [address] [facility] [employer] [address] * Phosphorus (11/22/2024 6:00 AM CDT) Pathologist [facility] Phosphorus, pl 3.6 2.3 - 4.5 mg/dL Blood 11/22/2024 6:00 AM CDT 11/22/2024 6:45 AM CDT Nino Sin MD LAB BLOOD ORDERABLES Final Resul t Performing Organization Address City/[facility] Co de Phone Number [facility] [address] [address] Department [place] [address] * Magnesium (11/22/2024 6:00 AM CDT) Pathologist [facility] Magnesium 2.1 1.4 - 2.5 mg/dL Blood 11/22/2024 6:00 AM CDT 11/22/2024 6:45 AM CDT Nino Sin MD LAB BLOOD ORDERABLES Final Resul t Performing Organization Address [facility] Co de Phone Number [facility] [address] Department [employer] [place], [place] [phone] * Hemoglobin A1c (11/22/2024 6:00 AM CDT) [facility] Hgb A1C 5.6 4.0 - 5.6 % Estimated Average Glucose 114 mg/dL [facility] Comment: The ADA recommends reporting an estimated Average Glucose (eAG) with all Hemoglobin A1c results using the equation derived from a study of 507 normal and diabetic adults. Minority populations were underrepresented and children were not included. (Diabetes Care 31:9638-9457, 2008). The eAG is not equivalent to a fasting glucose. Blood 11/22/2024 6:00 AM CDT 11/22/2024 6:46 AM CDT Nino Sin MD LAB BLOOD ORDERABLES Final Resul t Performing Organization Address [facility] de Phone Number [facility] [address] [address] [facility] [place] [address] * Basic metabolic panel (11/22/2024 6:00 AM CDT) [facility] Sodium 137 135 - 145 mmol/L Potassium, pl 3.9 3.3 - 4.9 mmol/L [facility] Chloride 103 97 - 110 mmol/L [facility] CO2 22 22 - 32 mmol/L [facility] Anion gap 12 2 - 15 mmol/L [facility] BUN 7 6 - 25 mg/dL [facility] Creatinine 0.82 0.80 - 1.30 mg/dL [facility] Glucose 100 70 - 199 mg/dL [facility] Comment: Interpretive Data Fasting glucose >/= 126 [...] 2022. Calcium 8.9 8.5 - 10.3 mg/dL [facility] Blood 11/22/2024 6:00 AM CDT 11/22/2024 6:45 AM CDT us Nino Sin MD LAB BLOOD ORDERABLES Final Resul t [facility]I [id number] Department [place] [address] * TRANSTHORACIC ECHO (TTE) COMPLETE W DOPPLER/CF WO CONTRAST (11/21/2024 7:40 AM CDT) EF Mod BP 63 % CONS SCIMAGE Anatomical Region Laterality Modality Ultrasound 11/21/2024 6:56 AM CDT Narrative 11/21/2024 8:20 AM CDT [place] [id number] Echocardiogram Report Patient Name: BRANDON DAVIS A : 1990 Study Date: 11/21/2024 6:56:11 AM Gender: M Tech: Location: [id number] Ref Provider: VLADIMIR ROSENTHAL Height(Cm): 170 BSA: 2.39 Weight(Kg): 121 Heart Rate: 90 BP: 128 / 87 Quality: Good Order Provider: VLADIMIR ROSENTHAL PROCEDURES: Echocardiographic Report: Transthoracic echocardiogram with complete 2D, M-Mode, and color Doppler examination. INDICATIONS: Complication of GA. MEASUREMENTS: 2D/MM Value Range Doppler Value Range [...] Procedure Note Otf Jaquez MD - 11/21/2024 [place] [address] Echocardiogram Report Patient Name: BRANDON DAVIS A : 1990 Study Date: 11/21/2024 6:56:11 AM Gender: M Tech: Location: [id number] Ref Provider: VLADIMIR ROSENTHAL Height(Cm): 170 BSA: 2.39 Weight(Kg): 121 Heart Rate: 90 BP: 128 / 87 Quality: Good Order Provider: VLADIMIR ROSENTHAL PROCEDURES: Echocardiographic Report: Transthoracic echocardiogram with complete 2D, M-Mode, and color Dopplerexamination. INDICATIONS: Complication of GA. MEASUREMENTS: 2D/MM Value Range Doppler ValueRange EF [...] Otf Jaquez MD 11/21/2024 8:19:30 AM CDT Vladimir Rosenthal MD CV ECHO PROCEDURES Final [...] 4:57 AM CDT 11/21/2024 5:04 AM CDT Vladimir Rosenthal MD LAB BLOOD ORDERABLES Final Result [facility] [address] Department [place] [address] * (ABNORMAL) CBC without differential (11/21/2024 4:57 AM CDT) WBC 16.81(H) 3.80 - 9.90 K/cumm Hgb 14.5 13.0 - 17.5 g/dL [facility] Hct 42.8 38.9 - 50.3 % [facility] Plt 246 150 - 400 K/cumm [facility] MPV 10.1 9.1 - 12.3 fL [facility] RBC 5.01 4.30 - 5.80 M/cumm [facility] MCV 85.4 81.3 - 96.4 fL [facility] MCH 28.9 27.1 - 33.[address] [facility] [facility] MCHC 33.9 32.3 - 35.7 g/dL [facility] RDW CV 13.5 11.1 - 14.9 % [facility] CH RDW SD 42.5 35.7 - 48.1 fL [facility] NRBC abs 0.00 0.00 - 0.01 K/cumm [facility] CH Blood 11/21/2024 4:57 AM CDT 11/21/2024 5:08 AM CDT Vladimir Rosenthal MD LAB BLOOD ORDERABLES Final Result Performing Organization Address City/[facility] de Phone Number [facility] [address] [address] [facility] [employer] [place], [place] [phone] * Phosphorus (11/21/2024 4:57 AM CDT) Phosphorus, pl 3.8 2.3 - 4.5 mg/dL Blood 11/21/2024 4:57 AM CDT 11/21/2024 8:31 AM CDT Nino Sin MD LAB BLOOD ORDERABLES Final Resul t Performing Organization Address City/[facility]/ZIP Co de Phone Number [facility] [address] [address] [facility] [employer] [place], [place] [phone] * Magnesium (11/21/2024 4:57 AM CDT) Magnesium 2.1 1.4 - 2.5 mg/dL Blood 11/21/2024 4:57 AM CDT 11/21/2024 8:31 AM CDT Nino Sin MD LAB BLOOD ORDERABLES Final Resul t NONI [address] [address] Department [place] [address] * (ABNORMAL) Lipid panel (11/21/2024 4:57 AM [...] on 2018. HDL 21(L) >=40 mg/dL [facility] Comment: Interpretive Data Ages [...] 2018. LDL, calculated 219(H) <=129 mg/dL [facility] Comment: Interpretive Data Ages < or = 19 years Acceptable: <110 mg/dL Borderline high: 110-129 mg/dL High: >or= 130 mg/dL Ages > or = 20 years Optimal: <100 mg/dL Near optimal: 100-129 mg/dL Borderline high: 130-159 mg/dL High: >160 mg/dL Calculated using the Otot LDL-C estimating equation. This equation was implemented on 2024. Prior to this date LDL-C was estimated using the Friedewald equation. Literature References: 1. Expert Panel on Integrated Guidelines for Cardiovascular Health and Risk Reduction in Children and Adolescents. Pediatrics 2011;128:S213 2. NCEP Expert Panel. Circulation 2004;110:227 3. Otto Maria et al. NANCY Cardiol. 2019November 02;5(5):540-548. doi: 10.1001/jamacardio.2020.0013 Current Interpretive Data was last revised on 2024. Non-HDL Cholesterol 303 mg/dL [facility] Comment: Interpretive Data Ages [...] last revised on 2018. Chol/HDL ratio 15 [facility] Blood 11/21/2024 4:57 AM CDT 11/21/2024 5:04 AM CDT Nino Sin MD LAB BLOOD ORDERABLES Final Resul t [facility] [address] [address] Department [place] [address] * (ABNORMAL) Basic metabolic panel (11/21/2024 4:57 AM CDT) Sodium 139 135 - 145 mmol/L Potassium, pl 4.0 3.3 - 4.9 mmol/L [facility] Chloride 105 97 - 110 mmol/L [facility] CO2 23 22 - 32 mmol/L [facility] Anion gap 11 2 - 15 mmol/L [facility] BUN 9 6 - 25 mg/dL [facility] Creatinine 0.78(L) 0.80 - 1.30 mg/dL [facility] Glucose 104 70 - 199 mg/dL [facility] Comment: Interpretive Data Fasting glucose >/= 126 [...] 2022. Calcium 8.7 8.5 - 10.3 mg/dL [facility] Blood 11/21/2024 4:57 AM CDT 11/21/2024 5:04 AM CDT us Vladimir Rosenthal MD LAB BLOOD ORDERABLES Final Result Performing Organization Address [facility]/ZIP Co de Phone Number [facility] [address] [address] Department [place] [address] * Critical Care (11/21/2024 12:30 AM CDT) Narrative Vladimir Rosenthal MD - 11/21/2024 12:30 AM CDT Vladimir Rosenthal MD 11/21/2024 12:37 AM Critical Care Performed by: Vladimir Rosenthal MD Authorized by: Vladimir Rosenthal MD CRITICAL CARE: Team: EVIN Shift: AM Level of Billing: Critical Care [...] plan with the ICU team and other medical/actuarial consultant staff, making frequent assessments and decisions [...] * POCT glucose (11/21/2024 12:20 AM CDT) Glucose, POC 116 70 - 199 mg/dL POC Performer [id number] [facility] Blood 11/21/2024 12:2 0 AM CDT 11/21/2024 12:20 AM CDT Nino Sin MD LAB POCT ORDERABLES - DEVICE Fin al Result [facility] [address] [address] Department [place] [address] * LEFT HEART CATHETERIZATION WITH CORONARY ANGIOGRAPHY AND WITH AND WITHOUT LEFT VENTRICULOGRAM (11/20/2024 11:35 PM CDT) Anatomical Region Laterality Modality X-Ray Angiograph y 11/20/2024 Narrative 11/21/2024 8:52 AM CDT [email or web address] Job ID: [id number] [email or web address] Document ID: [id number] Dictated date/time: [id number] LEFT HEART CATHETERIZATION. HISTORY OF PRESENT ILLNESS This is a 34-year-old gentleman presents to the hospital with chest pain, found to have inferior ST elevation GA. Referred for urgent left heart catheterization. PROCEDURE PERFORMED 1. Left heart catheterization. 2. Selective coronary angiography. 3. Left ventriculography with pull-back. 4. stent placement to mid RCA. 5. Vascular closure device placement. PROCEDURE TECHNIQUE After informed consent the patient was brought to catheterization laboratory, prepped and draped in usual sterile manner. Conscious sedation was administered by the optical lab technician staff. See procedure log for further details. Total of 2 mg of Versed and 50 mcg of fentanyl were given. Total sedation time 35 minutes Vascular access was obtained using the right common femoral artery. local anesthesia was applied using 2% lidocaine, 6-German sheath advanced over wire without difficulty. PCI of the right coronary artery was then performed followed by selective left coronary angiography and left ventriculography was performed . Diagnostic angiography was performed using combination of using a 5-German JL 4catheter and JR4 guide as well as 5 German pigtail catheter. At the end of procedure [...] Right common femoral artery. Hemostasis achieved using 6-German Angio-Seal device. IMPRESSION 1. Coronary artery disease with acute occlusion of the mid right coronary artery consistent with inferior ST-elevation GA. 2. Normal LV function, ejection fraction 55%. 3. Successful drug-eluting stent placement to mid RCA. With re-establishment of ERICH 3 flow 4. Successful vascular access closure RECOMMENDATION 1. Admit to ICU. 2. Continue dual antiplatelet therapy with aspirin and Brilinta 3. Initiate beta nathalia high-intensity statin. Nino Sin MD Job ID/Internal Job ID: [id number] Nino Sin MD CV CARDIAC CATH PROCEDURES Final Result * (ABNORMAL) POC Activated Clotting Time, High Range (11/20/2024 11:18 PM CDT) Pathologist [facility] ACT 362(H) 87 - 138 sec POC Performer [id number] [facility] Blood 11/20/2024 11:1 8 PM CDT 11/20/2024 11:18 PM CDT Nino Sin MD LAB BLOOD ORDERABLES Final Resul t NONI [address] [address] Department of Laboratories [place] [id number] * aPTT (11/20/2024 10:41 PM CDT) [facility] aPTT 32 28 - 38 sec Comment: Interpretive Data Heparin therapeutic range: 66.0 - 100.0 seconds. Range based on correlation with therapeutic heparin activity range of 0.3 - 0.7 Units/mL. Current interpretive data was last revised on 2023. Blood 11/20/2024 10:4 1 PM CDT 11/20/2024 10:41 PM CDT Narrative [facility] - 11/20/2024 10:53 PM CDT STAT PTT [...] must be drawn peripherally (not from CVC). Jeison Draper MD LAB BLOOD ORDERABLES Final Result [facility] [address] [facility] Department [place] [address] * XR Chest 1 View (11/20/2024 10:35 [...] 4 PM CDT 11/20/2024 10:42 PM CDT us Jeison Draper MD LAB BLOOD ORDERABLES Final Result [facility] [address] [address] Department [place] [address] * (ABNORMAL) Differential, auto (11/20/2024 10:34 PM CDT) Neutrophil abs 8.69(H) 1.50 - 6.50 K/cumm Imm gran abs 0.06 0.00 - 0.10 K/cumm [facility] Lymphocyte abs 3.71(H) 0.80 - 3.30 K/cumm [facility] Monocyte abs 0.85(H) 0.20 - 0.80 K/cumm [facility] Eosinophil abs 0.16 0.00 - 0.50 K/cumm [facility] Basophil abs 0.07 0.00 - 0.10 K/cumm [facility] Neutrophil pct 64.2 % [facility] Comment: Interpretive Data Percent cell count reference ranges are not reported, since discordance with absolute values may lead to misinterpretation of CBC data. Current Interpretive Data was last revised on 2017. Imm gran pct 0.4 % [facility] Comment: Interpretive Data Percent cell count reference ranges are not reported, since discordance with absolute values may lead to misinterpretation of CBC data. Current Interpretive Data was last revised on 2017. Lymphocyte pct 27.4 % [facility] Comment: Interpretive Data Percent cell count reference ranges are not reported, since discordance with absolute values may lead to misinterpretation of CBC data. Current Interpretive Data was last revised on 2017. Monocyte pct 6.3 % [facility] Comment: Interpretive Data Percent cell count reference ranges are not reported, since discordance with absolute values may lead to misinterpretation of CBC data. Current Interpretive Data was last revised on 2017. Eosinophil pct 1.2 % [facility] Comment: Interpretive Data Percent cell count reference ranges are not reported, since discordance with absolute values may lead to misinterpretation of CBC data. Current Interpretive Data was last revised on 2017. Basophil pct 0.5 % [facility] Comment: Interpretive Data Percent cell count reference ranges are not reported, since discordance with absolute values may lead to misinterpretation of CBC data. Current Interpretive Data was last revised on 2017. Blood 11/20/2024 10:3 4 PM CDT 11/20/2024 10:41 PM CDT us Jeison Draper MD LAB BLOOD ORDERABLES Final Result [facility] [address] [address] Department [place] [address] * Pro B-type natriuretic peptide (11/20/2024 10:34 [...] et.al. Eur Heart J. 2006:27:330-337. 2. Cornelia ESTRADA, Candie LA. J. AM Gabriela Cardiol: Cardiovasc Imag. 2009;2: 216- 225. Interpretive Data Last Revised Date: 2018. Blood 11/20/2024 10:3 4 PM CDT 11/20/2024 10:42 PM CDT us Jeison Draper MD LAB BLOOD ORDERABLES Final Result [facility] [address] [address] Department [place] [address] * (ABNORMAL) CBC with auto differential (11/20/2024 10:34 PM CDT) WBC 13.54(H) 3.80 - 9.90 K/cumm Hgb 16.2 13.0 - 17.5 g/dL [facility] Hct 49.9 38.9 - 50.3 % [facility] Plt 288 150 - 400 K/cumm [facility] MPV 10.1 9.1 - 12.3 fL [facility] RBC 5.79 4.30 - 5.80 M/cumm [facility] MCV 86.2 81.3 - 96.4 fL [facility] MCH 28.0 27.1 - 33.3 pg [facility] MCHC 32.5 32.3 - 35.7 g/dL [facility] RDW CV 13.6 11.1 - 14.9 % [facility] CH RDW SD 42.7 35.7 - 48.1 fL [facility] NRBC abs 0.00 0.00 - 0.01 K/cumm [facility] Blood 11/20/2024 10:3 4 PM CDT 11/20/2024 10:41 PM CDT Jeison Draper MD LAB BLOOD ORDERABLES Final Result Performing Organization Address [facility] de Phone Number [facility] [address] [address] Department [employer] [place] [address] * Protime-INR (11/20/2024 10:34 PM CDT) Pathologist [facility] PT 11.2 9.7 - 13.0 sec INR 1.04 0.90 - 1.20 [facility] Comment: Interpretive data Oral anticoagulant therapeutic ranges: Venous thromboembolism prophylaxis or treatment: 2.0-3.0 CARDIOLOGY Standard range: 2.0-3.0 High-intensity range: 2.5-3.5 Refer to indication-specific guidelines for appropriate target ranges for prosthetic heart valve replacement. Current interpretive data was last revised on 2019. Blood 11/20/2024 10:3 4 PM CDT 11/21/2024 3:07 PM CDT Jeison Draper MD LAB BLOOD ORDERABLES Final Result Performing Organization Address [facility] de Phone Number [facility] [address] [address] [facility] [place] [place] [address] * (ABNORMAL) Comprehensive metabolic panel (11/20/2024 10:34 PM CDT) Sodium 144 135 - 145 mmol/L Potassium, pl 3.0(L) 3.3 - 4.9 mmol/L [facility] Chloride 112(H) 97 - 110 mmol/L [facility] CO2 22 22 - 32 mmol/L [facility] Anion gap 10 2 - 15 mmol/L [facility] BUN 8 6 - 25 mg/dL [facility] [...] 10:34 PM CDT 11/20/2024 10:42 PM CDT Jeison Draper MD LAB BLOOD ORDERABLES Final Result Performing Organization Address City/State/[facility] [place] Phone Number [facility] [address] Department [place] [address] * [place] CRITICAL CARE ILL/INJURED PATIENT INIT 30-74 MIN [...] CDT) 11/20/2024 10:1 5 PM CDT Narrative [facility] - 11/21/2024 7:44 AM CDT Vent Rate: 96 bpm RR Interval: 625 msec OK Interval: 225 msec QRS Duration: 112 msec QT Interval: 353 msec QTC Interval: 406 msec P-R-T Odin: 26 - 88 - 84 degrees IMPRESSION: [...] new Electronically Signed By: Alfred Gutierrez MD [facility] us Jeison Draper MD ECG ORDERABLES Final Resu lt [facility] * [employer] Results (11/14/2024 1:49 PM CDT) us Provider Scanning AUDIOLOGY SERVICES ORDERABLES Final Result [...] tissues of the left buttock by the feed inspection supervisor, with selected grayscale and color Doppler images [...] Electronically signed by Trice Birmingham M.D. TW: TW Report ID: [id number] Reading Location: [id number] Procedure Note Trice Birmingham MD - 09/27/2024 EXAM DESCRIPTION: US SOFT TISSUE LOWER BACK REASON FOR STUDY: hematoma, Hematoma of left buttock TECHNIQUE: A Dynamic assessment was performed of the soft tissues of theleft buttock by the feed inspection supervisor, with selected grayscale and color Dopplerimages acquired [...] Trice Birmingham M.D. 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
--- OUTSIDE RECORDS SUMMARY | 2024-11-23 15:57 | XMS_ITS | Encounter Summary ---
Author Organization [facility] Healthcare Address [address] [place] [address] Care Team Providers Care Biztalk Software Developer Name Role Phone Anh Low CLINICAL ADMISSIONS MANAGER Primary Care Provider Reason for Referral * Consultation (Routine) - Pending Review Specialty Diagnoses / Procedures Referred By Contac t Referred To Contact Cardiac Rehabilitation Diagnoses ST elevation myocardial infarction (STEMI), unspecified artery (HCC) Nino Sin MD [address] [facility] [address] [place] [address] Phone: tel: fax: [address] [phone] Referral ID Status Reason Start Date Expiration Date Visits Requested Visits Authorized [id number] Pending Review Specialty Services Required 11/21/2024 12/21/2025 1 1 Question Answer Please select the performing region: [facility] [[facility]] Phase of Care Phase 2 Primary Diagnosis NV, NV w/ Stent Date: 11/20/2024 I authorize the it program manager to determine, review and revise the exercise prescription. I have examined the patient and he/she is capable and willing to participate in the plan of care. As indicated, implement the followin lead ECG as needed for Chest/Pain symptoms of angina, Biology Research Assistant Referral, Initiate ACLS protocol, per Medical Emergency Policy, Monitor finger stick blood glucose before, after and for symptoms per Diabetic Policy Admission Requirements: 12 lead EKG (Required baseline, if unable to provide) EKG will be completed it not provided by the referring physician. Exercise Prescription: Frequency 3 X's a week. Exercise equipment and workloads will be determined and progressed within limits of patient's ability and based on RPE 11-15 Arm Ergometer: 3-10 min @0-20 almonte, Bike: 3 - 10 min as tolerated, Dumbbells: 1-5 pounds 1 set of 5- 10 reps, Elliptical: 3-10 min as tolerated, Treadmill: 3-30 min @ 0.6-4.5 mph # of visits: 1 Reason for Visit * Reason Comments Chest Pain Pt started having ch est pain around 2100. Elevation in V1 & V2. REPEATER CHIEF EMS gave 324 of ASA. * Auth/Cert (Routine) Specialty Diagnoses / Procedures Referred By Contac t Referred To Contact Diagnoses ST elevation myocardial infarction (STEMI), unspecified artery (HCC) STEMI (ST elevation myocardial infarction) (HCC) Procedures na Referral ID Status Reason Start Date Expiration Date Visits Re quested Visits Authorized [id number] 1 1 Encounter Details Date Type Department Care Team (Latest Contact Info) Description 11/20/2024 10:16 PM CDT - 11/22/2024 1:35 PM CDT Hospital Encounter [facility] [address] [place] [address] Jeison Draper MD [address] [place] [address] Nino Sin MD [address] [place] [address] [address] [place] [address] Otf Jaquez MD [address] [place] [id number] elevation myocardial infarction (STEMI), unspecified artery (HCC) (Primary Dx) Discharge Disposition: Discharge to home or self care Social History Tobacco Use Types Packs/Day Years Used Date Smoking Tobacco: Every Day Cigarettes Smokeless Tobacco: Never Alcohol Use Standard Drinks/Week Comments Never 0 (1 standard drink = 0.6 oz pur e alcohol) [facility] Utilities Answer Date Recorded In the past 12 months has [employer], oil, or water [employer] threatened to shut off services in your [...] often do you attend chur ch or jehovah's witness services? Never 11/21/2024 Do you belong to any clubs o r organizations such as druze groups, unions, fraternal or athletic groups, or [...] any time in the past 12 m [facility], were you homeless or living in a group home (including now)? No 11/21/2024 Personal Safety Answer Date Recorded Have you ever been in or are you currently in a harmful physical or emotional relationship or is someone making you feel afraid or unsafe? 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 Never 11/21/2024 3:25 PM CDT Bessy Morillo R N Q2: How many drinks containing alcohol do you have on a typical day when you are drinking? Patient does not drink 11/21/2024 3:25 PM CDT Bessy Morillo RN Q3: How often do you have six or more drinks on one occasion? Never 11/21/2024 3:25 PM CDT Bessy Morillo R N documented as of this encounter Discharge Summaries * Otf Jaquez MD - 11/22/2024 10:53 AM CDT Inpatient Discharge Summary BRIEF OVERVIEW Admitting Provider: Nino Sin MD Discharge Provider: Otf Jaquez MD Primary Care Physician at Discharge: Anh Low NP [phone] Admission Date: 11/20/2024 Discharge Date: 11/22/2024 Admission Location: [facility] [place] Problems/Diagnoses: Principal Problem: STEMI (ST elevation myocardial infarction) (HCC) Resolved Problems: No resolved hospital problems. DETAILS OF HOSPITAL STAY Presenting Problem/History of Present Illness: Presented in the hospital as an inferior STEMI. Patient is deaf Hospital Course: Cath 11/21/24 Findings: 1- Hemodynamics: LV: 92/14 Ao: 82/54 2- Left ventriculography: Systolic function: NL. EF 55% Mitral regurgitation: trivial 3- Selective coronary angiography: Left coronary artery: Left main: NL LAD: NL Circumflex: mild Right coronary artery: 100%. He had angioplasty and stenting of the right coronary artery with good results Monitored overnight. Transfer to the floor. Did well. Became ambulatory No cardiac complaints this morning. Echocardiogram showed preserved ejection fraction. No valve issues. All questions answered patient verbalized understanding of plan of care. Will be seen in the office in follow-up. Incision well healing no signs or symptoms of bruising, bleeding or infection. Enamel Pulverizer used. Active Issues Requiring Follow-up: None Test Results Pending at Discharge: Operative Procedures Performed: Procedure(s): LEFT HEART CATHETERIZATION WITH CORONARY ANGIOGRAPHY AND WITH OR WITHOUT LEFT VENTRICULOGRAM [id number] Other Procedures: See chart Pertinent Test Results: See chart Discharge Details Physical Exam at Discharge: Discharge Condition: good Pulse: 84 Resp: 17 BP: 127/80 Temp: 36.4 ??C (97.5 ??F) Weight: 121 kg (266 lb 12.1 oz) Pertinent Exam Findings at Discharge: none Discharge Disposition: Patient will be discharged to:home Code Status at Discharge: full Discharge Instructions: Post Cardiac Cath Puncture site orders ~The morning after your procedure, you may take the dressing off. The easiest way to do this is when you are showering. Get the tape and dressing wet and remove it. ~After the bandage is removed, cover the area with a small adhesive bandage. It is normal for the catheter insertion site to be black and blue for a couple of days. There may also be a small lump (about the size of a pea) at the site. ~Wash the catheter insertion site at least once daily with soap and water. Place soapy water on your hand or washcloth and gently wash the insertion site; do not rub. Keep the area clean and dry whenyou are not showering. ~Do not use creams, lotions, or ointment on the insertion site. Wear loose clothes and loose Underwear. ~ Do not take a bath, tub soak, go in a Jacuzzi, or swim in a pool or beck for one week after the procedure. Post Femoral Cath Activity orders ~Do not strain during bowel movements for the first 3 to 4 days after the procedure to prevent bleeding form the catheter insertion site. ~Avoid heavy lifting (more than 10 pounds) and pushing or pulling heavy objects for the first 5 to 7 days after the procedure ~Do not participate in strenuous activities for 5 days after the procedure. This includes most sports (ie:jogging, golfing, playing tennis, and bowling). ~You may climb stairs if needed, but walk up and down the stairs more slowly than usual. ~Gradually increase your activities until you reach your normal activity level within one week after the procedure. Post Cath Notify physician ~Notifiy you physician if you experience numbness in your arm or leg, severe chills or a fever of 100.5 degrees F, redness, swelling, draining or a foul odor from the procedure or IV site, pain that will not go away. Diet Instructions Continue to follow a heart healthy diet that is low in sodium, trans fat and saturated fat. Read the nutrition facts label on packages. Aim to eat less than 2,000mg sodium per day (about 500-700 mg per meal). Do not add salt to foods and avoid foods that are high sources of sodium, such as fast foods, fried/breaded foods, canned goods, deli meats and gravies/sauces. Increase your intake of foods high in fiber, such as whole grains, fruits and vegetables. For questions, can call [facility] Dietitian's Office at [phone]. Additional resources available online from the [employer] at www.heart.org/en/healthy-living/healthy-eating Discharge Medications: Current Medications TAKE these medications EXCEDRIN EXTRA STRENGTH ORAL Take by mouth metoprolol tartrate 25 mg immediate release tablet Take 0.5 tablets (12.5 mg total) by mouth every 6 (six) hours For: cardiovascular disease Commonly known as: LOPRESSOR nicotine [address] 1 patch on the skin daily for 24 hours Commonly known as: NICODERM CQ Start taking on: November 23, 2024 rosuvastatin 40 mg tablet Take 1 tablet (40 mg total) by mouth nightly For: treatment to prevent a heart attack Commonly known as: CRESTOR ticagrelor 90 mg tablet Take 1 tablet (90 mg total) by mouth 2 (two) times a day For: cardiovascular disease Commonly known as: BRILINTA Outpatient Follow-Up: Future Appointments Date Time Provider Department Center 01/08/2025 1:30 PM Otf Jaquez MD [facility] CAR 122 PSA I will see him in the [place] office for follow-up Otf Jaquez MD documented in this encounter Discharge Instructions * Discharge Instructions* Ruben Fowler NP - 11/22/2024 10:44 AM CDT Post Cardiac Cath Puncture site orders ~The morning after your procedure, you may take the dressing off. The easiest way to do this is when you are showering. Get the tape and dressing wet and remove it. ~After the bandage is removed, cover the area with a small adhesive bandage. It is normal for the catheter insertion site to be black and blue for a couple of days. There may also be a small lump (about the size of a pea) at the site. ~Wash the catheter insertion site at least once daily with soap and water. Place soapy water on your hand or washcloth and gently wash the insertion site; do not rub. Keep the area clean and dry whenyou are not showering. ~Do not use creams, lotions, or ointment on the insertion site. Wear loose clothes and loose Underwear. ~ Do not take a bath, tub soak, go in a Jacuzzi, or swim in a pool or beck for one week after the procedure. Post Femoral Cath Activity orders ~Do not strain during bowel movements for the first 3 to 4 days after the procedure to prevent bleeding form the catheter insertion site. ~Avoid heavy lifting (more than 10 pounds) and pushing or pulling heavy objects for the first 5 to 7 days after the procedure ~Do not participate in strenuous activities for 5 days after the procedure. This includes most sports (ie:jogging, golfing, playing tennis, and bowling). ~You may climb stairs if needed, but walk up and down the stairs more slowly than usual. ~Gradually increase your activities until you reach your normal activity level within one week after the procedure. Post Cath Notify physician ~Notifiy you physician if you experience numbness in your arm or leg, severe chills or a fever of 100.5 degrees F, redness, swelling, draining or a foul odor from the procedure or IV site, pain that will not go away. * Discharge Instr - Diet* Liliane Brunson RD - 11/21/2024 10:39 AM CDT Continue to follow a heart healthy diet that is low in sodium, trans fat and saturated fat. Read the nutrition facts label on packages. Aim to eat less than 2,000mg sodium per day (about 500-700 mg per meal). Do not add salt to foods and avoid foods that are high sources of sodium, such as fast foods, fried/breaded foods, canned goods, deli meats and gravies/sauces. Increase your intake of foods high in fiber, such as whole grains, fruits and vegetables. For questions, can call [facility] Dietitian's Office at [phone]. Additional resources available online from the [employer] at www.heart.org/en/healthy-living/healthy-eating documented in this encounter Medications at Time of Discharge aspirin 81 mg chewable tablet Take 1 tablet (81 mg total) by mouth daily 30 tablet 11 11/22/2024 11/22/2025 aspirin/acetamino phen/caffeine (EXCEDRIN EXTRA STRENGTH ORAL) Take by mouth metoprolol tartrate (LOPRESSOR) 25 mg immediate release tabletIndications :cardiovascular disease Take 0.5 tablets (12.5 mg total) by mouth every 6 (six) hours 60 tablet 11 11/22/2024 11/22/2025 nicotine (NICODERM CQ) [address] 1 patch on the skin daily for 24 hours 90 patch 3 11/23/2024 11/23/2025 rosuvastatin (CRESTOR) 40 mg tabletIndications :myocardial infarction prevention Take 1 tablet (40 mg total) by mouth nightly 90 tablet 3 11/22/2024 11/22/2025 ticagrelor (BRILINTA) 90 mg tabletIndications :cardiovascular disease Take 1 tablet (90 mg total) by mouth 2 (two) times a day 180 tablet 3 11/22/2024 11/22/2025 documented as of this encounter Ordered Prescriptions Prescription Sig Dispense Quantity Refills Last Filled Start Date End Date aspirin 81 mg chewable tablet Take 1 tablet (81 mg total) by mouth daily 30 tablet 11 11/22/2024 nicotine (NICODERM CQ) [address] 1 patch on the skin daily for 24 hours 90 patch 3 11/23/2024 6 ticagrelor (BRILINTA) 90 mg tabletIndications: cardiovascular disease Take 1 tablet (90 mg total) by mouth 2 (two) times a day 180 tablet 3 11/22/2024 metoprolol tartrate (LOPRESSOR) 25 mg immediate release tabletIndications: cardiovascular disease Take 0.5 tablets (12.5 mg total) by mouth every 6 (six) hours 60 tablet 11 11/22/2024 rosuvastatin (CRESTOR) 40 mg tabletIndications: myocardial infarction prevention Take 1 tablet (40 mg total) by mouth nightly 90 tablet 3 11/22/2024 6 documented in this encounter Discharge Disposition Disposition Code Departure Means Destination Comment s Discharge to home or self care Private Vehicle documented in this encounter Progress Notes * Kirsten Carbone MD - 11/21/2024 7:10 AM CDT Critical Care Medicine Daily Progress Note Team: Community AM Subjective HPI: Patient is a 34 y.o. male with chief complaint of CP since ~ 2099. IW AYAH with reciprocal changes in the field; ASA given. CCL- 1 AJAY to RCA; NL EF, LVEDP ~14. Angioseal to groin. ICU course: 11/20: inferior STEMI, PCI w/AJAY to RCA 100% occlusion, admitted to ICU postop, started on statin cholesterol 324 Interval hx: Out of bed this AM, c/o groin soreness Past Medical History: Diagnosis Date ADHD Deaf Hyperlipidemia Past Surgical History: Procedure Laterality Date TONSILECTOMY, ADENOIDECTOMY, BILATERAL MYRINGOTOMY AND TUBES Allergies Allergen Reactions Cefaclor Cephalexin Cephalosporins Social History Tobacco Use Smoking status: Every Day Current packs/day: 0.10 Types: Cigarettes Smokeless tobacco: Never Substance and Sexual Activity Drug use: Yes Types: Medical marijuana Sexual activity: Defer Alcohol Use: Not on file No family history on file. HOME MEDICATIONS : acetaminophen (TYLENOL) 500 mg tablet aspirin/acetaminophen/caffeine (EXCEDRIN EXTRA STRENGTH ORAL) cyclobenzaprine (FLEXERIL) 10 mg tablet ibuprofen (ADVIL,MOTRIN) 600 mg tablet lidocaine (LIDODERM) 5 % methocarbamoL (ROBAXIN) 500 mg tablet naproxen (NAPROSYN) 500 mg tablet rosuvastatin (CRESTOR) 20 mg tablet Medications: Medications Prior to Admission Medication Sig Dispense Refill Last Dose/Taking acetaminophen (TYLENOL) 500 mg tablet Take 2 tablets (1,000 mg total) by mouth every 8 (eight) hours as needed for pain for up to 20 doses (Patient not taking: Reported on 10/05/2024) 40 tablet 0 aspirin/acetaminophen/caffeine (EXCEDRIN EXTRA STRENGTH ORAL) Take by mouth cyclobenzaprine (FLEXERIL) 10 mg tablet Take 1 tablet (10 mg total) by mouth 2 (two) times a day asneeded for muscle spasms (Patient not taking: Reported on 10/05/2024) 20 tablet 0 ibuprofen (ADVIL,MOTRIN) 600 mg tablet Take 1 tablet (600 mg total) by mouth every 6 (six) hours asneeded for pain for up to 30 doses (Patient not taking: Reported on 10/05/2024) 30 tablet 0 lidocaine (LIDODERM) 5 % Place 1 patch on the skin daily Remove & discard patch within 12 hoursor as directed by . (Patient not taking: Reported on 10/05/2024) 30 patch 0 methocarbamoL (ROBAXIN) 500 mg tablet Take 1 tablet (500 mg total) by mouth 3 (three) times a day as needed for muscle spasms This medication may cause excessive sleepiness. Do not drink alcohol, take other sedating medications, drive a vehicle, until you know how this medication affects you. (Patient not taking: Reported on 10/05/2024) 15 tablet 0 naproxen (NAPROSYN) 500 mg tablet Take 1 tablet (500 mg total) by mouth 2 (two) times a day as needed for pain Take with food. (Patient not taking: Reported on 10/05/2024) 30 tablet 0 rosuvastatin (CRESTOR) 20 mg tablet Take 1 tablet (20 mg total) by mouth daily Scheduled Medications Medication Dose Route Frequency aspirin chewable tablet 324 mg 324 mg oral Once aspirin enteric coated tablet 81 mg 81 mg oral Daily enoxaparin (LOVENOX) syringe 40 mg 40 mg subcutaneous Daily-2100 heparin 5,000 unit/mL injection 4,000 Units 4,000 Units intravenous Once metoprolol tartrate (LOPRESSOR) immediate release tablet 12.5 mg 12.5 mg oral Q6H FRANK rosuvastatin (CRESTOR) tablet 40 mg 40 mg oral Nightly ticagrelor (BRILINTA) tablet 120 mg 120 mg oral Once ticagrelor (BRILINTA) tablet 90 mg 90 mg oral BID Continuous Medications: Current Facility-Administered Medications Medication Dose Route Frequency Last Admin sodium chloride 0.9% 100 mL/hr intravenous Continuous 100 mL/hr at 11/21/24 0656 PRN Medications: Objective Vitals: Arrival Vitals [11/20/247] Temp 36.6 ??C (97.8 ??F) Pulse 119 Resp 24 BP 118/79 SpO2 97 % Temp src Oral Heart Rate Source Monitor Patient Position Reclining BP Location Left arm FiO2 (%) 24hr Min/Max: Temp Min: 36.5 ??C (97.7 ??F) Max: 36.7 ??C (98 ??F) Pulse Min: 80 Max: 119 BP Min: 106/64 Max: 133/80 Resp Min: 12 Max: 24 SpO2 Min: 90 % Max: 98 % Current Vitals: BP 133/80 Pulse 86 Temp 36.5 ??C (97.7 ??F) (Oral) Resp 14 Wt 121 kg (266 lb 12.1 oz) SpO2 96% BMI 41.78 kg/m?? Intake/Output: I/O last 2 completed shifts: In: 1779.1 [I.V.:1259.1; IV Piggyback:520] Out: 750 [Urine:750] No intake/output data recorded. LDA: Vent settings for last 24 hours: Hemodynamic parameters for last 24 hours: Lab/Radiology/Diagnostic Review: Recent Results (from the past 24 hours) Pro B-type natriuretic peptide Collection Time: 11/20/24 10:34 PM Result Value Ref Range NT-proBNP <36 <=300 pg/mL CBC with auto differential Collection Time: 11/20/24 10:34 PM Result Value Ref Range WBC 13.54 (H) 3.80 - 9.90 K/cumm Hgb 16.2 13.0 - 17.5 g/dL Hct 49.9 38.9 - 50.3 % Plt 288 150 - 400 K/cumm MPV 10.1 9.1 - 12.3 fL RBC 5.79 4.30 - 5.80 M/cumm MCV 86.2 81.3 - 96.4 fL MCH 28.0 27.1 - 33.3 pg MCHC 32.5 32.3 - 35.7 g/dL RDW CV 13.6 11.1 - 14.9 % RDW SD 42.7 35.7 - 48.1 fL NRBC abs 0.00 0.00 - 0.01 K/cumm Comprehensive metabolic panel Collection Time: 11/20/24 10:34 PM Result Value Ref Range Sodium 144 135 - 145 mmol/L Potassium, pl 3.0 (L) 3.3 - 4.9 mmol/L Chloride 112 (H) 97 - 110 mmol/L CO2 22 22 - 32 mmol/L Anion gap 10 2 - 15 mmol/L BUN 8 6 - 25 mg/dL Creatinine 0.76 (L) 0.80 - 1.30 mg/dL Glucose 105 70 - 199 mg/dL Calcium 7.1 (L) 8.5 - 10.3 mg/dL Bilirubin, total <0.2 0.1 - 1.2 mg/dL Protein, pl 5.5 (L) 6.5 - 8.5 g/dL Albumin 3.4 (L) 3.5 - 5.0 g/dL Alk phos 65 40 - 130 Units/L ALT 41 7 - 55 Units/L AST 21 10 - 50 Units/L Differential, auto Collection Time: 11/20/24 10:34 PM Result Value Ref Range Neutrophil abs 8.69 (H) 1.50 - 6.50 K/cumm Imm gran abs 0.06 0.00 - 0.10 K/cumm Lymphocyte abs 3.71 (H) 0.80 - 3.30 K/cumm Monocyte abs 0.85 (H) 0.20 - 0.80 K/cumm Eosinophil abs 0.16 0.00 - 0.50 K/cumm Basophil abs 0.07 0.00 - 0.10 K/cumm Neutrophil pct 64.2 % Imm gran pct 0.4 % Lymphocyte pct 27.4 % Monocyte pct 6.3 % Eosinophil pct 1.2 % Basophil pct 0.5 % eGFR Collection Time: 11/20/24 10:34 PM Result Value Ref Range eGFR >90 >=60 mL/min/1.73 m2 aPTT Collection Time: 11/20/24 10:41 PM Result Value Ref Range aPTT 32 28 - 38 sec POC Activated Clotting Time, High Range Collection Time: 11/20/24 11:18 PM Result Value Ref Range ACT 362 (H) 87 - 138 sec POC Performer [id number] POCT glucose Collection Time: 11/21/24 12:20 AM Result Value Ref Range Glucose, POC 116 70 - 199 mg/dL POC Performer [id number] Lipid panel Collection Time: 11/21/24 4:57 AM Result Value Ref Range Cholesterol 324 (H) 30 - 199 mg/dL Triglycerides 391 (H) <=149 mg/dL HDL 21 (L) >=40 mg/dL LDL, calculated 219 (H) <=129 mg/dL Non-HDL Cholesterol 303 mg/dL Chol/HDL ratio 15 Basic metabolic panel Collection Time: 11/21/24 4:57 AM Result Value Ref Range Sodium 139 135 - 145 mmol/L Potassium, pl 4.0 3.3 - 4.9 mmol/L Chloride 105 97 - 110 mmol/L CO2 23 22 - 32 mmol/L Anion gap 11 2 - 15 mmol/L BUN 9 6 - 25 mg/dL Creatinine 0.78 (L) 0.80 - 1.30 mg/dL Glucose 104 70 - 199 mg/dL Calcium 8.7 8.5 - 10.3 mg/dL CBC without differential Collection Time: 11/21/24 4:57 AM Result Value Ref Range WBC 16.81 (H) 3.80 - 9.90 K/cumm Hgb 14.5 13.0 - 17.5 g/dL Hct 42.8 38.9 - 50.3 % Plt 246 150 - 400 K/cumm MPV 10.1 9.1 - 12.3 fL RBC 5.01 4.30 - 5.80 M/cumm MCV 85.4 81.3 - 96.4 fL MCH 28.9 27.1 - 33.3 pg MCHC 33.9 32.3 - 35.7 g/dL RDW CV 13.5 11.1 - 14.9 % RDW SD 42.5 35.7 - 48.1 fL NRBC abs 0.00 0.00 - 0.01 K/cumm eGFR Collection Time: 11/21/24 4:57 AM Result Value Ref Range eGFR >90 >=60 mL/min/1.73 m2 Physical exam: General: no acute distress, sitting upright in chair, Eye: sclera anicteric, extra-ocular movements intact Neuro: deaf- reads lips and responds to questions appropriately Resp: clear to auscultation bilaterally, nonlabored breathing without respiratory distress CV: regular rate and rhythm GI: abdomen soft, non distended, nontender : no coleman Ext: warm, well-perfused, no peripheral edema bilateral lower extremities, R groin dressing in place clean dry intact no hematoma swelling, appropriately tender to palpation Psych: appropriate mood and affect Skin: no rashes, warm and dry Assessment/Plan: Neuro: -No acute issues Cardiovascular: #Inferior STEMI -S/p PCI, AJAY stent to RCA w/100% occlusion -Appreciate Cardiology recs -DAPT w/ASA and ticagrelor -Metoprolol 12.5 q6hr -Cardiac Rehab to eval -Formal TTE 11/21 - normal LV size, LVEF 63%, mild concentric LVH, normal LV systolic function mild inferior hypokinesis, trivial mitral regurg Pulmonary: -RA, encourage IS and OOB GI: #Diet -Cardiac diet Renal: -Replete electrolytes for K>4, Mg>2, P>3 -Monitor UOP Heme: #DVT ppx -Lovenox, SCDs ID: -Leukocytosis 16 likely reactive, CTM -No abx indicated Endo: -Euglycemic -Check A1c with AM labs ICU Best Practice: DVT prophylaxis: Lovenox, SCDs SUP prophylaxis: none Restraints: none Indwelling Urinary Catheter: none Lines, Tubes and Drains: PIV Skin Integrity Issues: none Antibiotic Stewardship: reviewed, no abx PT/OT/Disposition: Cardiac Rehab to eval, anticipate no OT/PT needs Family: will update Dispo: ICU - will discuss with Cardiology re transfer to floor today Assessment and plan has been reviewed with attending. Kirsten Carbone M.D. Clinical Fellow, Surgical Critical Care Section of Acute and Critical Care Surgery Cosigned by Valentin Bentley MD at 11/21/2024 5:49 PM CDT Associated attestation - Valentin Bentley MD - 11/21/2024 5:49 PM CDT I have seen and examined the patient on 11/21/24. I agree with the findings and plan of care as documented in the resident's/fellow's note.. documented in this encounter H&P Notes * Vladimir Rosenthal MD - 11/21/2024 12:30 AM CDTAssociated Order(s): Critical Care Images from the original note were not included. Critical Care Medicine H & P Team: [facility] [place] Reason for Consult: STEMI Requesting Provider: SIN (CARDS) Subjective Patient is a 34 y.o. male with chief complaint of CP since ~ 2099. IW AYAH with reciprocal changes in the field; ASA given. CCL- 1 AJAY to RCA; NL EF, LVEDP ~14. Angioseal to groin. Past Medical History: Diagnosis Date ADHD Deaf Hyperlipidemia Past Surgical History: Procedure Laterality Date TONSILECTOMY, ADENOIDECTOMY, BILATERAL MYRINGOTOMY AND TUBES Allergies Allergen Reactions Cefaclor Cephalexin Cephalosporins Social History Tobacco Use Smoking status: Every Day Current packs/day: 0.10 Types: Cigarettes Smokeless tobacco: Never Substance and Sexual Activity Drug use: Yes Types: Medical marijuana Sexual activity: Defer Alcohol Use: Not on file No family history on file. HOME MEDICATIONS : acetaminophen (TYLENOL) 500 mg tablet aspirin/acetaminophen/caffeine (EXCEDRIN EXTRA STRENGTH ORAL) cyclobenzaprine (FLEXERIL) 10 mg tablet ibuprofen (ADVIL,MOTRIN) 600 mg tablet lidocaine (LIDODERM) 5 % methocarbamoL (ROBAXIN) 500 mg tablet naproxen (NAPROSYN) 500 mg tablet rosuvastatin (CRESTOR) 20 mg tablet Medications: Medications Prior to Admission Medication Sig Dispense Refill Last Dose/Taking acetaminophen (TYLENOL) 500 mg tablet Take 2 tablets (1,000 mg total) by mouth every 8 (eight) hours as needed for pain for up to 20 doses (Patient not taking: Reported on 10/05/2024) 40 tablet 0 aspirin/acetaminophen/caffeine (EXCEDRIN EXTRA STRENGTH ORAL) Take by mouth cyclobenzaprine (FLEXERIL) 10 mg tablet Take 1 tablet (10 mg total) by mouth 2 (two) times a day asneeded for muscle spasms (Patient not taking: Reported on 10/05/2024) 20 tablet 0 ibuprofen (ADVIL,MOTRIN) 600 mg tablet Take 1 tablet (600 mg total) by mouth every 6 (six) hours asneeded for pain for up to 30 doses (Patient not taking: Reported on 10/05/2024) 30 tablet 0 lidocaine (LIDODERM) 5 % Place 1 patch on the skin daily Remove & discard patch within 12 hoursor as directed by MD. (Patient not taking: Reported on 10/05/2024) 30 patch 0 methocarbamoL (ROBAXIN) 500 mg tablet Take 1 tablet (500 mg total) by mouth 3 (three) times a day as needed for muscle spasms This medication may cause excessive sleepiness. Do not drink alcohol, take other sedating medications, drive a vehicle, until you know how this medication affects you. (Patient not taking: Reported on 10/05/2024) 15 tablet 0 naproxen (NAPROSYN) 500 mg tablet Take 1 tablet (500 mg total) by mouth 2 (two) times a day as needed for pain Take with food. (Patient not taking: Reported on 10/05/2024) 30 tablet 0 rosuvastatin (CRESTOR) 20 mg tablet Take 1 tablet (20 mg total) by mouth daily Scheduled Medications Medication Dose Route Frequency [Transfer Hold] aspirin chewable tablet 324 mg 324 mg oral Once [Transfer Hold] heparin 5,000 unit/mL injection 4,000 Units 4,000 Units intravenous Once ticagrelor (BRILINTA) tablet 120 mg 120 mg oral Once Continuous Medications: Current Facility-Administered Medications Medication Dose Route Frequency Last Admin heparin 0-33 Units/kg/hr intravenous Titrated Stopped at 11/20/242302 sodium chloride 0.9% Code/Trauma/Sedation Continuous Med 250 mL at 11/20/242328 sodium chloride 0.9% Code/Trauma/Sedation Continuous Med 100 mL/hr at 11/20/242333 PRN Medications: fentaNYL, , 50 mcg at 11/20/242308 heparin, , 8,000 Units at 11/20/242312 [Transfer Hold] heparin, 2,000 Units OR [Transfer Hold] heparin, 3,000 Units heparin in 0.9% sodium chloride, , 1,500 mL at 11/20/242255 ioversoL, , 130 mL at 11/20/242333 lidocaine, , 10 mL at 11/20/242301 midazolam, , 2 mg at 11/20/242299 phenylephrine, , 100 mcg at 11/20/242314 sodium chloride 0.9%, , Last Rate: 999 mL/hr at 11/20/242328, 250 mL at 11/20/242328 sodium chloride 0.9%, , Last Rate: 100 mL/hr at 11/20/242333, 100 mL/hr at 11/20/242333 ticagrelor, , 120 mg at 11/20/242317 Objective Vitals: Arrival Vitals [11/20/242226] Temp 36.6 ??C (97.8 ??F) Pulse 119 Resp 24 BP 118/79 SpO2 97 % Temp src Oral Heart Rate Source Monitor Patient Position Reclining BP Location Left arm FiO2 (%) 24hr Min/Max: Temp Min: 36.6 ??C (97.8 ??F) Max: 36.7 ??C (98 ??F) Pulse Min: 105 Max: 119 BP Min: 118/79 Max: 121/89 Resp Min: 20 Max: 24 SpO2 Min: 97 % Max: 97 % Current Vitals: BP 121/89 Pulse 105 Temp 36.7 ??C (98 ??F) (Oral) Resp 20 Wt 104.3 kg (230 lb) SpO2 97% BMI 36.02 kg/m?? Intake/Output: No intake/output data recorded. No intake/output data recorded. LDA: Vent settings for last 24 hours: Hemodynamic parameters for last 24 hours: Physical Exam Cardiovascular: Rate and Rhythm: Normal rate and regular rhythm. Pulmonary: Effort: Pulmonary effort is normal. Breath sounds: Normal breath sounds. Abdominal: General: Bowel sounds are normal. Palpations: Abdomen is soft. Musculoskeletal: Right lower leg: Edema (1+) present. Left lower leg: Edema present. Skin: Capillary Refill: Capillary refill takes less than 2 seconds. Neurological: Comments: Pt is deaf; reads lips well. Lab/Radiology/Diagnostic Review: Recent Results (from the past 24 hours) Pro B-type natriuretic peptide Collection Time: 11/20/24 10:34 PM Result Value Ref Range NT-proBNP <36 <=300 pg/mL CBC with auto differential Collection Time: 11/20/24 10:34 PM Result Value Ref Range WBC 13.54 (H) 3.80 - 9.90 K/cumm Hgb 16.2 13.0 - 17.5 g/dL Hct 49.9 38.9 - 50.3 % Plt 288 150 - 400 K/cumm MPV 10.1 9.1 - 12.3 fL RBC 5.79 4.30 - 5.80 M/cumm MCV 86.2 81.3 - 96.4 fL MCH 28.0 27.1 - 33.3 pg MCHC 32.5 32.3 - 35.7 g/dL RDW CV 13.6 11.1 - 14.9 % RDW SD 42.7 35.7 - 48.1 fL NRBC abs 0.00 0.00 - 0.01 K/cumm Comprehensive metabolic panel Collection Time: 11/20/24 10:34 PM Result Value Ref Range Sodium 144 135 - 145 mmol/L Potassium, pl 3.0 (L) 3.3 - 4.9 mmol/L Chloride 112 (H) 97 - 110 mmol/L CO2 22 22 - 32 mmol/L Anion gap 10 2 - 15 mmol/L BUN 8 6 - 25 mg/dL Creatinine 0.76 (L) 0.80 - 1.30 mg/dL Glucose 105 70 - 199 mg/dL Calcium 7.1 (L) 8.5 - 10.3 mg/dL Bilirubin, total <0.2 0.1 - 1.2 mg/dL Protein, pl 5.5 (L) 6.5 - 8.5 g/dL Albumin 3.4 (L) 3.5 - 5.0 g/dL Alk phos 65 40 - 130 Units/L ALT 41 7 - 55 Units/L AST 21 10 - 50 Units/L Differential, auto Collection Time: 11/20/24 10:34 PM Result Value Ref Range Neutrophil abs 8.69 (H) 1.50 - 6.50 K/cumm Imm gran abs 0.06 0.00 - 0.10 K/cumm Lymphocyte abs 3.71 (H) 0.80 - 3.30 K/cumm Monocyte abs 0.85 (H) 0.20 - 0.80 K/cumm Eosinophil abs 0.16 0.00 - 0.50 K/cumm Basophil abs 0.07 0.00 - 0.10 K/cumm Neutrophil pct 64.2 % Imm gran pct 0.4 % Lymphocyte pct 27.4 % Monocyte pct 6.3 % Eosinophil pct 1.2 % Basophil pct 0.5 % eGFR Collection Time: 11/20/24 10:34 PM Result Value Ref Range eGFR >90 >=60 mL/min/1.73 m2 aPTT Collection Time: 11/20/24 10:41 PM Result Value Ref Range aPTT 32 28 - 38 sec POC Activated Clotting Time, High Range Collection Time: 11/20/24 11:18 PM Result Value Ref Range ACT 362 (H) 87 - 138 sec POC Performer [id number] A/P: Neuro/Psych/Sleep/Pain: No acute issues for ICU care. Cardiovascular/Fluids: ST ELEVATION NV- [place] NV Type 1- Spont NV Date of NV- 11/20. EKG showed IWSTEMI. Peak Ti = pending. Pt without active chest pain. DDx includes unstable plaque rupture/clot. Work up includes serial EKGs/cardiac markers, echocardiogram, and Cardiology consult for urgent intervention. Treatment includes ASA, P2Y12 receptor nathalia, and statin. Pulmonary: No acute issues for ICU care. GI/NUT: No acute issues for ICU care. Renal/LYTES/Acid-Base: HYPOKALEMIA- replete and trend. Contrast load with 11/20 PCI. NL LVEDP; con't MIVF's until tolerating PO. ID: No acute issues for ICU care. Hem/Onc/Coag: No acute issues for ICU care. Endocrine: No acute issues for ICU care. Musculoskeletal/Skin: No acute issues for ICU care. Trauma: No acute issues for ICU care. ICU standards of care: Restraints: Not Applicable Physical therapy/Activity: bedrest Access: Peripheral IV 11/20/24 20 G Anterior;Proximal;Right Forearm (Active) Number of days: 0 Peripheral IV 11/20/24 20 G Posterior;Right Hand (Active) Number of days: 0 Goals of care: No Order Patient updated at bedside by me 11/20/2024. Critical Care Performed by: Vladimir Rosenthal MD Authorized by: Vladimir Rosenthal MD CRITICAL CARE: Team: RADHA Shift: AM Level of Billing: Critical Care My time spent with this patient was 45 minutes: Critical Provider Statement: I have seen and examined the patient on this day of service. I have reviewed and confirmed the history, physical exam, laboratory and radiologic data as documented in thesigned ICU note. I have reviewed and discussed my treatment plan with the ICU team and other medical/sales development consultant staff, making frequent assessments and decisions [...] doing the following: Initiation/management of anti-platelet agents documented in this encounter Procedure Notes * Nino Sin MD - 11/21/2024 12:03 AM CDT CARDIOLOGY PROCEDURE REPORT Date: 11/21/2024 Time: 12:06 AM Brandon Davis is a 34 y.o. male with Per procedure diagnosis: STEMI Procedures Performed: Left heart catheterization Selective coronary angiography Left ventriculography AJAY to RCA Vascular closure Findings: 1- Hemodynamics: LV: 92/14 Ao: 82/54 2- Left ventriculography: Systolic function: NL. EF 55% Mitral regurgitation: trivial 3- Selective coronary angiography: Left coronary artery: Left main: NL LAD: NL Circumflex: mild Right coronary artery: 100%. WMS Heparin Brilinta 180 AJAY 3.5x38 4.0x12 NCB Complications: None Blood loss: Minimal-30 ml Specimen: N/A Impression: STEMI Recommendations: ICU DAPT BB, statin Full report dictated Nino Sin MD, FACC, [facility] documented in this encounter Consult Notes * Brtita Galan MSW - 11/22/2024 12:15 PM CDTAssociated Order(s): IP CONSULT TO SOCIAL WORK ARTIFICIAL BREEDING DISTRIBUTOR acknowledges SW consult for High Risk for Readmission or High Utilizer Patient. Pt does not meet criteria for High Risk for readmisiion. However, ARTIFICIAL BREEDING DISTRIBUTOR notified that pt would like to complete Advanced Directive. ARTIFICIAL BREEDING DISTRIBUTOR met with pt, pt's mother, and aquatics assistant department head (Chanda with [employer]). Pt is agreeable to AD and asked that his mother complete the paperwork. Pt's mother accepted paperwork and ARTIFICIAL BREEDING DISTRIBUTOR educated her on completion. ARTIFICIAL BREEDING DISTRIBUTOR reached out to [facility] services for support. Pt denies any SDNM needs or concerns at this time. SW will continue to follow for support and services. * Liliane Brunson RD - 11/21/2024 10:39 AM CDTAssociated Order(s): IP CONSULT TO NUTRITION SERVICES NUTRITION ASSESSMENT Nutrition Status: Patient does not meet AAIM (ASPEN) criteria for malnutrition at this time. REASON FOR ASSESSMENT: Consult/Referral - Diet Education Encounter Date: 11/21/24 10:39 AM Admission Date: 11/20/2024 LOS: 1 days HPI: Patient is a 34 y.o. male with history of deafness, ADHD who presented with chest discomfort. EKG showed inferior ST elevation. Cardiology consulted for urgent left heart catheterization. In the lab the patient complained of chest pain and EKG clearly showed ST elevations and fairly reciprocal changes, decision was made to take the patient to the warehouse laborer. 11/21: Ordering Ensure Plus High PRO, bid, strawberry flavor. Offer diet education when pain has subsided and interpretor is present. Objective Past Medical History: Diagnosis Date ADHD Deaf Hyperlipidemia Past Surgical History: Procedure Laterality Date CARDIAC CATHETERIZATION N/A 11/20/2024 Procedure: LEFT HEART CATHETERIZATION WITH CORONARY ANGIOGRAPHY AND WITH OR WITHOUT LEFT VENTRICULOGRAM 58044; Surgeon: Nino Sin MD; Location: [facility]; Service: Cardiovascular; Laterality: N/A; TONSILECTOMY, ADENOIDECTOMY, BILATERAL MYRINGOTOMY AND TUBES Social History Tobacco Use Smoking status: Every Day Current packs/day: 0.10 Types: Cigarettes Smokeless tobacco: Never Substance and Sexual Activity Drug use: Yes Types: Medical marijuana Sexual activity: Defer Alcohol Use: Not on file MEDICATION/LAB REVIEW: Scheduled Meds: aspirin, 324 mg, oral, Once aspirin, 81 mg, oral, Daily enoxaparin, 40 mg, subcutaneous, Daily-2100 heparin, 4,000 Units, intravenous, Once metoprolol tartrate, 12.5 mg, oral, Q6H FRANK rosuvastatin, 40 mg, oral, Nightly ticagrelor, 120 mg, oral, Once ticagrelor, 90 mg, oral, BID Continuous Infusions: PRN Meds: acetaminophen oxyCODONE Recent Labs Lab Units 11/21/24 0457 11/20/24 2234 SODIUM mmol/L 139 144 POTASSIUM PLASMA mmol/L 4.0 3.0* CHLORIDE mmol/L 105 112* CO2 mmol/L 23 22 BUN SERUM mg/dL 9 8 CREATININE mg/dL 0.78* 0.76* [id number] mL/min/1.73 m2 >90 >90 CALCIUM mg/dL 8.7 7.1* ALBUMIN g/dL -- 3.4* PHOSPHORUS PLASMA mg/dL 3.8 -- MAGNESIUM mg/dL 2.1 -- Recent Labs Lab Units 11/21/24 0457 11/21/24 0020 11/20/24 2234 GLUCOSE mg/dL 104 -- 105 POC GLUCOSE MONITOR mg/dL -- 116 -- ALT Date Value Ref Range Status 11/20/2024 41 7 - 55 Units/L Final AST Date Value Ref Range Status 11/20/2024 21 10 - 50 Units/L Final Alk phos Date Value Ref Range Status 11/20/2024 65 40 - 130 Units/L Final Lab Results Component Value Date HDL 21 (L) 11/21/2024 LDLCALC 219 (H) 11/21/2024 CHOL 324 (H) 11/21/2024 TRIG 391 (H) 11/21/2024 NURSING ASSESSMENT: Bowel Sounds (All Quadrants): Active José Miguel Scale Score: 19 Skin Integrity: Intact Vital Signs BP: 128/72 Temp: 36.5 ??C (97.7 ??F) Pulse: 85 Resp: 23 SpO2: 96 % Intake/Output Summary (Last 24 hours) at 11/21/2024 1039 Last data filed at 11/21/2024 0656 Gross per 24 hour Intake 1779.1 ml Output 750 ml Net 1029.1 ml Adult Malnutrition Scoring Tool (MST) Have You Recently Lost Weight Without Trying?: No Have you been eating poorly because of a decreased appetite?: No Malnutrition Screening Tool (MST) Score: 0 Anthropometrics Weight: 121 kg (266 lb 12.1 oz) Admission Weight : 121 kg Weight Change: 16.67 kg (36.75 lbs) IBW/kg (Calculated) : 67.2 kg Height: 170.2 cm (5' 7.01 ) Weight in (lb) to have BMI = 25: 159.3 Wt Readings from Last 10 Encounters: 11/21/24 121 kg (266 lb 12.1 oz) 10/05/24 118.1 kg (260 lb 6.4 oz) 07/19/24 118 kg (260 lb 3.2 oz) 04/10/23 113.4 kg (250 lb) 01/13/23 108.9 kg (240 lb) 05/06/22 106.6 kg (235 lb) 03/18/18 77.1 kg (170 lb) 09/22/17 77.1 kg (170 lb) ESTIMATED NEEDS: Total Energy Needs: 2648.75 kcal Total Energy Needs + Fever Factor: 2648.75 Equation Chosen to Use by RD: Rah Prajapati Activity Factor: 1.25 Weight Used for Equation Calculations (RD Determined): 121 kg (266 lb 12.1 oz) . Total Protein Estimated Needs (gm): 145.2 Protein Needs Based on g/k.2 Type of Weight Used for Estimated Protein : Current Total Fluid Estimated Needs: 2648.75 mL/day Fluid Needs Based on : 1 ml/kcal Type of Weight Used for Estimated Fluid Needs: Current Dietary Orders (From admission, onward) Start Ordered 11/21/24 0035 Adult Diet Restricted; Low Fat, Low Chol, Low Na, 2 GM Sodium Diet effective now Question Answer Comment (CH) Diet type Restricted Fat / Sodium Restriction: Low Fat, Low Chol, Low Na Fat / Sodium Restriction: 2 GM Sodium 11/21/24 0036 Allergies: Reviewed. IMPRESSION: Pt seen laying in bed. Noted to be deaf and no interpretor present. RD wrote all questions on paperand patient wrote out answers. Pt c/o nausea and pain, alerted nurse. Diet education not appropriate at this time. RD told Pt education will be given when pain is under control and when an interpretor can hopefully be present. Pt denies issues chewing/swallowing. UBW reported to be 230 lb and Pt denies any significant weight loom changer the past year. Home appetite was fair and he does not followany diet restrictions. Ordering ONS in order to meet patient's estimated kcal and protein needs. Ordering Ensure Plus HighPRO bid, strawberry flavor. Pt with no questions or concerns at this time. AAIM (ASPEN) MALNUTRITION ASSESSMENT: Date of completion: 11/21/24 NUTRITION FOCUSED PHYSICAL EXAM: Not clinically indicated, no concerns for malnutrition at this time. NUTRITION DIAGNOSIS: Nutrition Diagnosis 1: Inadequate oral intake Related to: Pain, Nausea Evidenced by: PO under 50%, Patient interview INTERVENTION(S): Summary: Initial assessment, Medical food supplement GOAL(S): Adequate nutrition to meet estimated needs by next assessment, Oral intake to meet 75% estimated nutritional needs by next assessment, Patient/caregiver able to teach back understanding of role of diet in disease process prior to discharge, Tolerance of medical food supplement by next assessment MONITORING/EVALUATION: Appetite, Diet-related questions, Discharge plans, GI output, I/O, Labs, Plan of care, PO intake, Supplement tolerance, Weight changes, Wound healing Diet Instructions Continue to follow a heart healthy diet that is low in sodium, trans fat and saturated fat. Read the nutrition facts label on packages. Aim to eat less than 2,000mg sodium per day (about 500-700 mg per meal). Do not add salt to foods and avoid foods that are high sources of sodium, such as fast foods, fried/breaded foods, canned goods, deli meats and gravies/sauces. Increase your intake of foods high in fiber, such as whole grains, fruits and vegetables. For questions, can call [facility] Dietitian's Office at [phone]. Additional resources available online from the [employer] at www.heart.org/en/healthy-living/healthy-eating Liliane Brunson RD, * Nino Sin MD - 11/21/2024 12:19 AM CDT Full consult dictated [id number] Nino Sin MD * Nino Sin MD - 11/20/2024 12:00 AM CDT CONSULTATION REASON FOR CONSULTATION Chest pain. HISTORY OF PRESENT ILLNESS This is a 34-year-old gentleman with history of deafness, ADHD who presented with chest discomfort.EKG showed inferior ST elevation. Cardiology consulted for urgent left heart catheterization. In the lab the patient complained of chest pain and EKG clearly showed ST elevations and fairly reciprocal changes, decision was made to take the patient to the warehouse laborer. PAST MEDICAL HISTORY 1. ADHD. 2. Deafness. PAST SURGICAL HISTORY None significant. SOCIAL HISTORY Denies history of alcohol use. FAMILY HISTORY Noncontributory. ALLERGIES CEPHALOSPORINS. REVIEW OF SYSTEMS All systems were reviewed. The patient complained of chest pain. No shortness of breath. No fever or chills. No abdominal pain. No nausea, no vomiting. No headache or blurred vision and no lower extremity edema. PHYSICAL EXAMINATION VITAL SIGNS: Blood pressure 114/82, respirations 12. Sat 99% on room air. HEENT: Head normocephalic, atraumatic. Pupils round, reactive to light. Extraocular muscles are intact. NECK: Full range of motion. CHEST: Clear to auscultation bilaterally. CARDIAC EXAM: Revealed regular rate and rhythm. No significant murmur noted. ABDOMEN: Soft, nontender. Positive bowel sounds. EXTREMITY: No clubbing, cyanosis, or edema. NEURO: Patient is alert, oriented x3. LABS EKG showed inferior ST elevation in leads 2, 3 and AVF with reciprocal changes. ASSESSMENT AND PLAN 1. Inferior ST-elevation NV. Plan dual antiplatelet therapy, treatment with low- dose Brilinta 80 mgand aspirin. 2. Urgent left heart catheterization. 3. Further recommendations will be submitted by his hospital course. Job ID/Internal Job ID: [id number] documented in this encounter ED Notes * Jeison Draper MD - 11/20/2024 10:20 PM CDTAssociated Order(s): Critical Care HPI No chief complaint on file. HPI Patient History: Past Medical History: Diagnosis Date ADHD Deaf The above entry was entered by triage nurse. No EMS note. Patient met on arrival case discussed with EMS. Patient endorses onset of chest pain at approximately 2100. Patient states pain is constant. Patient denies any alleviating or exacerbating factors. Patient isunable to characterize pain. Symptoms have been constant. Intensity has been constant. Review of Systems Review of Systems All other systems reviewed and are negative. Physical Exam ED Triage Vitals Temp Pulse Resp BP SpO2 -- -- -- -- -- Temp src Heart Rate Source Patient Position BP Location FiO2 (%) -- -- -- -- -- Height Height Method Weight Weight Method -- -- -- -- Patient Vitals for the past 24 hrs: BP Temp Temp src Pulse Resp SpO2 Weight 11/20/24 2230 121/89 -- -- 105 20 97 % -- 11/20/24 2227 118/79 36.6 ??C (97.8 ??F) Oral 119 24 97 % 104.3 kg (230 lb) Physical Exam Vitals and nursing note reviewed. Constitutional: General: He is not in acute distress. Appearance: He is well-developed. HENT: Head: Normocephalic and atraumatic. Eyes: Conjunctiva/sclera: Conjunctivae normal. Cardiovascular: Rate and Rhythm: Normal rate and regular rhythm. Heart sounds: No murmur heard. Pulmonary: Effort: Pulmonary effort is normal. No respiratory distress. Breath sounds: Normal breath sounds. Abdominal: Palpations: Abdomen is soft. Tenderness: There is no abdominal tenderness. Musculoskeletal: General: No swelling. Cervical back: Neck supple. Skin: General: Skin is warm and dry. Capillary Refill: Capillary refill takes less than 2 seconds. Neurological: Mental Status: He is alert. Psychiatric: Mood and Affect: Mood normal. MDM Medical Decision Making Amount and/or Complexity of Data Reviewed Independent Historian: EMS External Data Reviewed: ECG. Details: 10:39 PM Sinus rhythm, rate 95. QRS, PA, QT Interval WNL. Normal axis. ST elevation II, III, aVF. ST depression I & aVL. Clinical Interpretation: STEMI. Interpreted by Dr. Draper. Labs: ordered. Radiology: ordered. Details: Chest x-ray: No pneumothorax, infiltrate, or effusion,. ECG/medicine tests: ordered. Details: 10:21 PM Case discussed with: Dr. omkar BLAND physical exam, labs, radiographic evaluation, medications/interventions, EKG, EMS report were discussed. He agrees with care plan and agrees take the patient emergently to warehouse laborer Risk OTC drugs. Prescription drug management. Critical Care Performed by: Jeison Draper MD Authorized by: Jeison Draper MD Critical care provider statement: As reflected in the history, physical exam, orders, notes, and/or MDM, I was personally present while the patient was critically ill and provided critical care services for 45 minutes, excluding timeinvolved in separately billable procedures. Critical care was necessary to treat or prevent imminent or life- threatening deterioration of the following condition(s): acute myocardial [...] spent time documenting in the medical record. Final diagnoses: ST elevation myocardial infarction (STEMI), unspecified artery (HCC) Jeison Draper MD 11/20/24 2245 * Lexie Gonzales RN - 11/20/2024 10:16 PM CDT Bed: [facility] Expected date: Expected time: Means of arrival: Comments: Stemi 34M Chest pain Elevation in 2-3-AVF Depression 1 avl v1 v2 4 asa Fluids running 115/76 7mins out EKG faxed over Lexie Gonzales RN 11/20/24 2216 documented in this encounter Miscellaneous Notes * Plan of Care - Bessy Morillo RN - 11/22/2024 12:25 PM CDT DISCHARGE PLANNING HAS BEEN FINALIZED AT THIS TIME Case management team met with the patient and finalized discharge planning. Please see below. Expected Discharge Date and Time Expected Discharge Date Approx. Expected Discharge Time November 22, 2024 Morning 11/22/24 1225 Discharge Summary Discharge Disposition Private residence Recommended Discharge Level of Care Private residence Actual Discharge Level of Care Private residence Does Actual Level of Care Match Care Team Recommendation? Yes Post Acute Care Plan Post Acute Care Needs Identified No Discharge Additional Assistance Does the patient need discharge transport arranged? No (Parent for transportation home) Post Discharge Care Provider Post Discharge Care Plan DC Summary has been faxed to next level of care provider (see Follow Up Providers) This discharge plan, including the mode of transport has been discussed with the patient/family, physician and nursing staff. All are agreeable to plan and understand their responsibility to ensure the safe discharge. If there is a change in patient condition which could impact this plan and/or additional discharge needs arise, please contact Case Management/Social Work. Discharge Disposition Code: 01 JB Cordoba, RN artist agent [phone] * Plan of Care - Bessy Morillo RN - 11/22/2024 10:55 AM CDT 11/22/24 1055 Communications Important Message from Medicare notice given to patient? Not Applicable CRENSHAW letter given? Not Applicable Patient choice (Home Health/Hospice) list given to patient/personal financial representative? Not Applicable [facility] Facility list given to patient/personal financial representative? Not Applicable Fiduciary Responsibility Patient/Designated decision maker was informed of [facility] fiduciary relationship as necessary Notice of Non-Covered Continued Stay or Hospital Services Given to Patient Not Applicable * Plan of Care - Fe Tatum RN - 11/22/2024 3:41 AM CDT Problem: Lack of Knowledge Goal: Ability to develop a pain control plan will improve Outcome: Progressing Problem: Medication Goal: Satisfaction with pain management medication regimen will improve Outcome: Progressing Problem: Sensory Goal: Ability to identify factors that increase pain levels will improve while working to decrease the patient's pain levels Outcome: Progressing Problem: Coping Goal: Ability to cope will improve Outcome: Progressing Problem: Health Behavior Goal: Identification of resources available to assist in meeting health care needs will improve Outcome: Progressing Problem: Cardiovascular Goal: Maintains optimal cardiac output and hemodynamic stability Outcome: Progressing Goal: Absence of cardiac dysrhythmias or at baseline Outcome: Progressing Goal: Cardiovascular status will improve Outcome: Progressing Goals: Clinical Goals for the Shift: safety,comfort,vss, fall prevention , pain management Summary: * Initial Assessments - Bessy Morillo RN - 11/21/2024 3:12 PM CDT CM Low Risk Discharge Planning Assessment Note Information Obtained From: Patient (via an signing basket hand weaver) (11/21/241511) Primary Care Provider: Anh Low NP Preferred Pharmacy: [id number] - [place] - [address] [place] [address] [place] [address] Primary Caregiver: Self Who does the patient or legal guardian want to receive education instruction and discharge plans for after care assistance?: Name Caregiver Name: Lilli Madrid Relationship to patient: Grandmother Caregiver Contact Information: [phone] Home Care Services: No Durable Medical Equipment: None Living Arrangements: Family members (Grandmother) Type of Residence: Private residence Payor Source: Medicaid Does the patient need discharge transport arranged?: (Family for transport home) (11/21/241511) Additional Information and Discharge Plan: Assessment completed 11/21/2024 NATALEE Transportation provided by the family Admitted for Chest Pain and STEMI -(L) Heart Cath 11/20, 1 stent to the RCA, which was 100% occluded; Brillinta, beta nathalia, statin;TTE revealed 11/21 EF 63% The patient lives in a private residence with his grandmother; no steps; receives disability; has awheelchair; has a bible worker (grandmother) doesn't know how many days or hours; independent with ADLs; will use the [facility]; drives; smokes 3-4 cigarettes per day x 15+ years and has nicotine patches; interacts with family; has seen his PCP within the last 6 months; requested advancedirectives - SW consulted. JB Cordoba, RN artist agent [phone] * Significant Event - Tona, Kirsten Renner MD - 11/21/2024 1:01 PM CDT ICU to Floor Transfer Plan to move patient to the 9th floor, 921-bed 1 . Sign out given to Ruben Fowler NP and attending gina Jaquez. Please see most recent daily progress note for detailed HPI, hospital course, and significant events. Do not hesitate to reach out via phone if any further questions/concerns. Kirsten Carbone MD Phone number to be reached at: [phone] (fellow) documented in this encounter Plan of Treatment Scheduled Referrals Name Type Priority Associated Diagnoses Order Schedule Ambulatory referral to Cardiac Rehab Outpatient Referral Routine ST elevation myocardial infarction (STEMI), unspecified artery (HCC) 1 Occurrences starting 11/21/2024 until 11/21/2025 documented as of this encounter Procedures Procedure Name Priority Date/Time Associated Diagnosis Comments EGFR Routine 11/22/2024 6:00 AM CDT CBC WITHOUT DIFFERENTIAL Routine 11/22/2024 6:00 AM CDT PHOSPHORUS Routine 11/22/2024 6:00 AM CDT MAGNESIUM Routine 11/22/2024 6:00 AM CDT HEMOGLOBIN A1C Routine 11/22/2024 6:00 AM CDT BASIC METABOLIC PANEL Routine 11/22/2024 6:00 AM CDT TRANSTHORACIC ECHO (TTE) COMPLETE W DOPPLER/CF WO CONTRAST Routine 11/21/2024 7:40 AM CDT EGFR Routine 11/21/2024 4:57 AM CDT CBC WITHOUT DIFFERENTIAL Routine 11/21/2024 4:57 AM CDT PHOSPHORUS Add-On 11/21/2024 4:57 AM CDT MAGNESIUM Add-On 11/21/2024 4:57 AM CDT LIPID PANEL Routine 11/21/2024 4:57 AM CDT BASIC METABOLIC PANEL Routine 11/21/2024 4:57 AM CDT CRITICAL [...] AUTO STAT 11/20/2024 10: 34 PM CDT PRO B-TYPE NATRIURETIC PEPTIDE STAT 11/20/2024 10:34 PM CDT CBC WITH AUTO DIFFERENTIAL STAT 11/20/2024 10:34 PM CDT PROTIME-INR STAT 11/20/2024 10:34 PM CDT COMPREHENSIVE METABOLIC PANEL STAT 11/20/2024 10:34 PM CDT PA CRITICAL CARE ILL/INJURED PATIENT INIT 30-74 MIN Routine 11/20/2024 10:20 PM CDT ECG 12-LEAD STAT 11/20/2024 10:15 PM CDT documented in this encounter Results * eGFR (11/22/2024 6:00 AM CDT) [...] MD LAB BLOOD ORDERABLES Final Resul t [facility] [address] Department [place] [address] * (ABNORMAL) CBC without differential (11/22/2024 6:00 AM CDT) WBC 13.42(H) 3.80 - 9.90 K/cumm Hgb 14.6 13.0 - 17.5 g/dL [facility] Hct 45.2 38.9 - 50.3 % [facility] Plt 226 150 - 400 K/cumm [facility] MPV 10.5 9.1 - 12.3 fL [facility] RBC 5.18 4.30 - 5.80 M/cumm [facility] MCV 87.3 81.3 - 96.4 fL [facility] MCH 28.2 27.1 - 33.3 pg [facility] MCHC 32.3 32.3 - 35.7 g/dL [facility] RDW CV 13.7 11.1 - 14.9 % [facility] RDW SD 44.1 35.7 - 48.1 fL [facility] NRBC abs 0.00 0.00 - 0.01 K/cumm [facility] Blood 11/22/2024 6:00 AM CDT 11/22/2024 6:45 AM CDT Nino Sin MD LAB BLOOD ORDERABLES Final Resul t Performing Organization Address [facility] de Phone Number [facility] [address] [facility] [place] [address] * Magnesium (11/22/2024 6:00 AM CDT) Magnesium 2.1 1.4 - 2.5 mg/dL Blood 11/22/2024 6:00 AM CDT 11/22/2024 6:45 AM CDT Nino Sin MD LAB BLOOD ORDERABLES Final Resul t Performing Organization Address [facility] de Phone Number [facility] [address] [facility] [place] [address] * Phosphorus (11/22/2024 6:00 AM CDT) Pathologist [facility] Phosphorus, pl 3.6 2.3 - 4.5 mg/dL Blood 11/22/2024 6:00 AM CDT 11/22/2024 6:45 AM CDT Nino Sin MD LAB BLOOD ORDERABLES Final Resul t Performing Organization Address [facility] de Phone Number [facility] [address] [facility] [place] [address] * Basic metabolic panel (11/22/2024 6:00 AM CDT) Sodium 137 135 - 145 mmol/L Potassium, pl 3.9 3.3 - 4.9 mmol/L [facility] Chloride 103 97 - 110 mmol/L [facility] CO2 22 22 - 32 mmol/L [facility] Anion gap 12 2 - 15 mmol/L [facility] BUN 7 6 - 25 mg/dL [facility] Creatinine 0.82 0.80 - 1.30 mg/dL [facility] Glucose 100 70 - 199 mg/dL [facility] Comment: Interpretive Data Fasting glucose >/= 126 [...] 2022. Calcium 8.9 8.5 - 10.3 mg/dL [facility] Blood 11/22/2024 6:00 AM CDT 11/22/2024 6:45 AM CDT Nino Sin MD LAB BLOOD ORDERABLES Final Resul t Performing Organization Address City/[facility]/ZIP Co de Phone Number [facility] [address] [address] * Hemoglobin A1c (11/22/2024 6:00 AM CDT) Hgb A1C 5.6 4.0 - 5.6 % Estimated Average Glucose 114 mg/dL [facility] Comment: The ADA recommends reporting an estimated Average Glucose (eAG) with all Hemoglobin A1c results using the equation derived from a study of 507 normal and diabetic adults. Minority populations were underrepresented and children were not included. (Diabetes Care 31:7141-8333, 2008). The eAG is not equivalent to a fasting glucose. Blood 11/22/2024 6:00 AM CDT 11/22/2024 6:46 AM CDT Nino Sin MD LAB BLOOD ORDERABLES Final Resul t [facility] [address] [place] [address] * TRANSTHORACIC ECHO (TTE) COMPLETE W DOPPLER/CF WO CONTRAST (11/21/2024 7:40 AM CDT) EF Mod BP 63 % CONS SCIMAGE Anatomical Region Laterality Modality Ultrasound 11/21/2024 6:56 AM CDT Narrative 11/21/2024 8:20 [place] [address] Echocardiogram Report Patient Name: BRANDON DAVIS A : 1990 Study Date: 11/21/2024 6:56:11 AM Gender: M Tech: Location: [id number] Ref Provider: VLADIMIR ROSENTHAL Height(Cm): 170 BSA: 2.39 Weight(Kg): 121 Heart Rate: 90 BP: 128 / 87 Quality: Good Order Provider: VLADIMIR ROSENTHAL PROCEDURES: Echocardiographic Report: Transthoracic echocardiogram with complete 2D, M-Mode, and color Doppler examination. INDICATIONS: Complication of NV. MEASUREMENTS: 2D/MM Value Range Doppler Value Range [...] Procedure Note Otf Jaquez MD - 11/21/2024 [place] [id number] Echocardiogram Report Patient Name: BRANDON DAVIS A : 1990 Study Date: 11/21/2024 6:56:11 AM Gender: M Tech: Location: [address] Provider: VLADIMIR ROSENTHAL Height(Cm): 170 BSA: 2.39 Weight(Kg): 121 Heart Rate: 90 BP: 128 / 87 Quality: Good Order Provider: VLADIMIR ROSENTHAL PROCEDURES: Echocardiographic Report: Transthoracic echocardiogram with complete 2D, M-Mode, and color Dopplerexamination. INDICATIONS: Complication of NV. MEASUREMENTS: 2D/MM Value Range Doppler ValueRange EF [...] CV ECHO PROCEDURES Final Re sult * Phosphorus (11/21/2024 4:57 AM CDT) Phosphorus, pl 3.8 2.3 - 4.5 mg/dL Blood 11/21/2024 4:57 AM CDT 11/21/2024 8:31 AM CDT Nino Sin MD LAB BLOOD ORDERABLES Final Resul t Performing Organization Address City/[facility] Co de Phone Number [facility] [address] [place] [address] * Magnesium (11/21/2024 4:57 AM CDT) Magnesium 2.1 1.4 - 2.5 mg/dL Blood 11/21/2024 4:57 AM CDT 11/21/2024 8:31 AM CDT Nino Sin MD LAB BLOOD ORDERABLES Final Resul t Performing Organization Address [facility] de Phone Number [facility] [address] [place] [address] * eGFR (11/21/2024 4:57 AM CDT) eGFR [...] Result Performing Organization Address [facility] Co de Phone Number [facility] [address] [place] [address] * (ABNORMAL) CBC without differential (11/21/2024 4:57 AM CDT) WBC 16.81(H) 3.80 - 9.90 K/cumm Hgb 14.5 13.0 - 17.5 g/dL [facility] Hct 42.8 38.9 - 50.3 % [facility] Plt 246 150 - 400 K/cumm [facility] MPV 10.1 9.1 - 12.3 fL [facility] RBC 5.01 4.30 - 5.80 M/cumm [facility] MCV 85.4 81.3 - 96.4 fL [facility] MCH 28.9 27.1 - 33.3 pg [facility] MCHC 33.9 32.3 - 35.7 g/dL [facility] RDW CV 13.5 11.1 - 14.9 % [facility] RDW SD 42.5 35.7 - 48.1 fL [facility] NRBC abs 0.00 0.00 - 0.01 K/cumm [facility] Blood 11/21/2024 4:57 AM CDT 11/21/2024 5:08 AM CDT Vladimir Rosenthal MD LAB BLOOD ORDERABLES Final Result Performing Organization Address [facility] Co de Phone Number [facility] [address] [place] [address] * (ABNORMAL) Basic metabolic panel (11/21/2024 4:57 AM CDT) Sodium 139 135 - 145 mmol/L Potassium, pl 4.0 3.3 - 4.9 mmol/L [facility] Chloride 105 97 - 110 mmol/L [facility] CO2 23 22 - 32 mmol/L [facility] Anion gap 11 2 - 15 mmol/L [facility] BUN 9 6 - 25 mg/dL [facility] Creatinine 0.78(L) 0.80 - 1.30 mg/dL [facility] Glucose 104 70 - 199 mg/dL [facility] Comment: Interpretive Data Fasting glucose >/= 126 [...] 2022. Calcium 8.7 8.5 - 10.3 mg/dL [facility] Blood 11/21/2024 4:57 AM CDT 11/21/2024 5:04 AM CDT us Vladimir Rosenthal MD LAB BLOOD ORDERABLES Final Result [facility] [address] [place] [address] * (ABNORMAL) Lipid panel (11/21/2024 4:57 AM [...] on 2018. Triglycerides 391(H) <=149 mg/dL [facility] Comment: Interpretive Data Ages < [...] 3. Otto Maria et al. NANCY Cardiol. 2020 November 02;5(5):540-548. doi: 10.1001/[email or web address].2020.0013 Current Interpretive Data was last revised on 2024. Non-HDL Cholesterol 303 mg/dL [facility] Comment: Interpretive Data Ages < [...] CDT 11/21/2024 5:04 AM CDT us Nino Sin MD LAB BLOOD ORDERABLES Final Resul t [facility] [address] Department [place] [address] * Critical Care (11/21/2024 12:30 AM CDT) [...] plan with the ICU team and other medical/sales development consultant staff, making frequent assessments and decisions [...] 116 70 - 199 mg/dL POC Performer [phone] [facility] Blood 11/21/2024 12:2 0 AM CDT 11/21/2024 12:20 AM CDT Nino Sin MD LAB POCT ORDERABLES - DEVICE Fin al Result [facility] [address] Department [place] [address] * LEFT HEART CATHETERIZATION WITH CORONARY ANGIOGRAPHY AND WITH AND WITHOUT LEFT VENTRICULOGRAM (11/20/2024 11:35 PM CDT) Anatomical Region Laterality Modality X-Ray Angiograph y 11/20/2024 Narrative 11/21/2024 8:52 AM CDT [employer] Job ID: [id number] [employer] Document ID: [id number] Dictated date/time: [id number] LEFT HEART CATHETERIZATION. HISTORY OF PRESENT ILLNESS This is a 34-year-old gentleman presents to the hospital with chest pain, found to have inferior ST elevation NV. Referred for urgent left heart catheterization. PROCEDURE PERFORMED 1. Left heart catheterization. 2. Selective coronary angiography. 3. Left ventriculography with pull-back. 4. stent placement to mid RCA. 5. Vascular closure device placement. PROCEDURE TECHNIQUE After informed consent the patient was brought to catheterization laboratory, prepped and draped in usual sterile manner. Conscious sedation was administered by the warehouse laborer staff. See procedure log for further details. Total of 2 mg of Versed and 50 mcg of fentanyl were given. Total sedation time 35 minutes Vascular access was obtained using the right common femoral artery. local anesthesia was applied using 2% lidocaine, 6-[place]izen [place] sheath advanced over wire without difficulty. PCI of the right coronary artery was then performed followed by selective left coronary angiography and left ventriculography was performed . Diagnostic angiography was performed using combination of using a 5-[place]izen [place] JL 4catheter and JR4 guide as well as 5 [place] pigtail catheter. At the end of procedure [...] Right common femoral artery. Hemostasis achieved using 6-[place] Angio-Seal device. IMPRESSION 1. Coronary artery disease with acute occlusion of the mid right coronary artery consistent with inferior ST-elevation NV. 2. Normal LV function, ejection fraction 55%. 3. Successful drug-eluting stent placement to mid RCA. With re-establishment of ERICH 3 flow 4. Successful vascular access closure RECOMMENDATION 1. Admit to ICU. 2. Continue dual antiplatelet therapy with aspirin and Brilinta 3. Initiate beta nathalia high-intensity statin. Nino Sin MD Job ID/Internal Job ID: [id number] Nino Sin MD CV CARDIAC CATH PROCEDURES Final Result * (ABNORMAL) POC Activated Clotting Time, High Range (11/20/2024 11:18 PM CDT) ACT 362(H) 87 - 138 sec POC Performer [id number] [facility] Blood 11/20/2024 11:1 8 PM CDT 11/20/2024 11:18 PM CDT Nino Sin MD LAB BLOOD ORDERABLES Final Resul t Performing Organization Address [facility] de Phone Number [facility] [address] [place] [address] * aPTT (11/20/2024 10:41 PM CDT) aPTT 32 28 - 38 sec Comment: Interpretive Data Heparin therapeutic range: 66.0 - 100.0 seconds. Range based on correlation with therapeutic heparin activity range of 0.3 - 0.7 Units/mL. Current interpretive data was last revised on 2023. Blood 11/20/2024 10:4 1 PM CDT 11/20/2024 10:41 PM CDT Narrative [facility] - 11/20/2024 10:53 PM CDT STAT PTT [...] Result Performing Organization Address [facility] Co de Phone Number [facility] [address] [place] [address] * XR Chest 1 View (11/20/2024 10:35 [...] Draper MD LAB BLOOD ORDERABLES Final Result [facility] [address] [place] [address] * (ABNORMAL) Differential, auto (11/20/2024 10:34 PM CDT) Neutrophil abs 8.69(H) 1.50 - 6.50 K/cumm Imm gran abs 0.06 0.00 - 0.10 K/cumm [facility] Lymphocyte abs 3.71(H) 0.80 - 3.30 K/cumm [facility] Monocyte abs 0.85(H) 0.20 - 0.80 K/cumm [facility] Eosinophil abs 0.16 0.00 - 0.50 K/cumm [facility] Basophil abs 0.07 0.00 - 0.10 K/cumm [facility] Neutrophil pct 64.2 % [facility] Comment: Interpretive Data Percent cell count reference ranges are not reported, since discordance with absolute values may lead to misinterpretation of CBC data. Current Interpretive Data was last revised on 2017. Imm gran pct 0.4 % [facility] Comment: Interpretive Data Percent cell count reference ranges are not reported, since discordance with absolute values may lead to misinterpretation of CBC data. Current Interpretive Data was last revised on 2017. Lymphocyte pct 27.4 % [facility] Comment: Interpretive Data Percent cell count reference ranges are not reported, since discordance with absolute values may lead to misinterpretation of CBC data. Current Interpretive Data was last revised on 2017. Monocyte pct 6.3 % [facility] Comment: Interpretive Data Percent cell count reference ranges are not reported, since discordance with absolute values may lead to misinterpretation of CBC data. Current Interpretive Data was last revised on 2017. Eosinophil pct 1.2 % [facility] Comment: Interpretive Data Percent cell count reference ranges are not reported, since discordance with absolute values may lead to misinterpretation of CBC data. Current Interpretive Data was last revised on 2017. Basophil pct 0.5 % [facility] Comment: Interpretive Data Percent cell count reference ranges are not reported, since discordance with absolute values may lead to misinterpretation of CBC data. Current Interpretive Data was last revised on 2017. Blood 11/20/2024 10:3 4 PM CDT 11/20/2024 10:41 PM CDT Jeison Draper MD LAB BLOOD ORDERABLES Final Result Performing Organization Address [facility] de Phone Number [facility] [address] [facility] [place] [address] * Protime-INR (11/20/2024 10:34 PM CDT) Pathologist [facility] PT 11.2 9.7 - 13.0 sec INR 1.04 0.90 - 1.20 [facility] Comment: Interpretive data Oral anticoagulant therapeutic ranges: Venous thromboembolism prophylaxis or treatment: 2.0-3.0 CARDIOLOGY Standard range: 2.0-3.0 High-intensity range: 2.5-3.5 Refer to indication-specific guidelines for appropriate target ranges for prosthetic heart valve replacement. Current interpretive data was last revised on 2019. Blood 11/20/2024 10:3 4 PM CDT 11/21/2024 3:07 PM CDT Jeison Draper MD LAB BLOOD ORDERABLES Final Result Performing Organization Address [facility] de Phone Number [facility] [address] [facility] [place] [address] * (ABNORMAL) Comprehensive metabolic panel (11/20/2024 10:34 PM CDT) Sodium 144 135 - 145 mmol/L Potassium, pl 3.0(L) 3.3 - 4.9 mmol/L [facility] Chloride 112(H) 97 - 110 mmol/L [facility] CO2 22 22 - 32 mmol/L [facility] Anion gap 10 2 - 15 mmol/L [facility] BUN 8 6 - 25 mg/dL [facility] Creatinine 0.76(L) 0.80 - 1.30 mg/dL [facility] [...] Draper MD LAB BLOOD ORDERABLES Final Result [facility] [address] Department [place] [address] * (ABNORMAL) CBC with auto differential (11/20/2024 10:34 PM CDT) WBC 13.54(H) 3.80 - 9.90 K/cumm Hgb 16.2 13.0 - 17.5 g/dL [facility] Hct 49.9 38.9 - 50.3 % [facility] Plt 288 150 - 400 K/cumm [facility] MPV 10.1 9.1 - 12.3 fL [facility] RBC 5.79 4.30 - 5.80 M/cumm [facility] MCV 86.2 81.3 - 96.4 fL [facility] MCH 28.0 27.1 - 33.3 pg [facility] MCHC 32.5 32.3 - 35.7 g/dL [facility] RDW CV 13.6 11.1 - 14.9 % [facility] RDW SD 42.7 35.7 - 48.1 fL [facility] NRBC abs 0.00 0.00 - 0.01 K/cumm [facility] Blood 11/20/2024 10:3 4 PM CDT 11/20/2024 10:41 PM CDT us Jeison Draper MD LAB BLOOD ORDERABLES Final Result [facility] [address] [place] [address] * Pro B-type natriuretic peptide (11/20/2024 10:34 [...] Eur Heart J. 2006:27:330-337. 2. Cornelia RW, Candie AM. J. AM Gabriela Cardiol: Cardiovasc Imag. 2009;2: 216- 225. Interpretive Data Last Revised Date: 2018. Blood 11/20/2024 10:3 4 PM CDT 11/20/2024 10:42 PM CDT us Jeison Draper MD LAB BLOOD ORDERABLES Final Result [facility] [address] [facility] Department [place] [address] * PA CRITICAL CARE ILL/INJURED PATIENT INIT 30-74 MIN [...] spent time documenting in the medical record. us Jeison Draper MD IN CLINIC/BEDSIDE ORDERABL ES Final Result * ECG 12 lead (11/20/2024 10:15 PM CDT) 11/20/2024 10:1 5 PM CDT Narrative [facility] - 11/21/2024 7:44 AM CDT Vent Rate: 96 bpm RR Interval: 625 msec PA Interval: 225 msec QRS Duration: 112 msec QT Interval: 353 msec QTC Interval: 406 msec P-R-T [place]: 26 - 88 - 84 degrees IMPRESSION: [...] new Electronically Signed By: Alfred Gutierrez MD B us Jeison Draper MD ECG ORDERABLES Final Resu lt [facility] documented in this encounter Visit Diagnoses Diagnosis STEMI (ST elevation myocardial infarction) (HCC)- Primary Acute myocardial infarction, unspecified site, episode of care unspecified ST elevation myocardial infarction (STEMI), unspecified artery (HCC) documented in this encounter Admitting Diagnoses Diagnosis STEMI (ST elevation myocardial infarction) (HCC) Acute myocardial infarction, unspecified site, episode of care unspecified documented in this encounter Administered Medications Inactive Administered Medications - up to 3 most recent administrations Medication Order MAR Action Action Date Dose Rate Site acetaminophen (TYLENOL) tablet 650 mg 650 mg, oral, Every 4 hours PRN, 1st line for pain, Starting on Wed11/21/24 at 1002 Given 11/22/2024 4:23 AM CDT 650 mg Given 11/21/2024 6:46 PM CDT 650 mg Given 11/21/2024 2:39 PM CDT 650 mg aspirin chewable tablet 81 mg 81 mg, oral, Daily, First dose on Wed11/22/24 at 1200 Given 11/22/2024 1:11 PM CDT 81 mg aspirin enteric coated tablet 81 mg 81 mg, oral, Daily, First dose on Wed11/21/24 at 0900, Recovery (CV), Do not crush, chew, cut, dissolve, open or otherwise manipulate tablet/capsule., Indications: cardiovascular diseaseIndications:card iovascular disease Given 11/21/2024 9:46 AM CDT 81 mg enoxaparin (LOVENOX) syringe 40 mg 40 mg, subcutaneous, Daily (for enoxaparin), First dose on Wed11/21/24 at 2100, Indications: Deep Vein Thrombosis PreventionIndications:D eep Vein Thrombosis Prevention Given 11/21/2024 8:44 PM CDT 40 mg Left Lower Abdomen heparin 5,000 unit/mL injection 4,000 Units 4,000 Units, intravenous, Once, On Wed11/20/24 at 2219, For 1 dose, Indications: Acute Coronary SyndromeIndications:Acu te Coronary Syndrome Given 11/20/2024 10:29 PM CDT 4,000 Units heparin in 0.45% sodium chloride 25,000 units/250 mL (100 units/mL) infusion (premix) 0-33 Units/kg/hr 118.1 kg (0-38.973 mL/hr, rounded to 0-38.97 mL/hr), intravenous, Titrated, Starting on Wed11/20/24 at 2221, WEIGHT-BASED HEPARIN INFUSION Units/kg/hr. Max initial dose:1,000 units/hr. Titration Instructions- Adjust dose based on PTT Results STAT PTT timing: - Draw 6 hours after heparin infusion initiation - Draw 6 hours after every dose change until 2 consecutive PTTs are therapeutic - Once 2 consecutive PTTs are therapeutic, draw with daily labs until infusion is discontinued - - Restart every 6 hour lab draws and follow instructions accordingly if PTT is outside of therapeutic range PTT results: PTT less than 46 seconds: Bolus if ordered (see PRN bolus order) , then INCREASE infusion dose by 3 (THREE) units/kg/hour PTT 46 - 55 seconds: Bolus if ordered (see PRN bolus order), then INCREASE infusion dose by 2 (TWO) units/kg/hour PTT 56 - 65 seconds: No bolus, INCREASE infusion dose by 1 (ONE) unit/kg/hour PTT 66 - 100 seconds (therapeutic): No change PTT 101 - 110 seconds: No bolus, DECREASE infusion dose by 1 (ONE) unit/kg/hour PTT 111 - 120 seconds: Hold infusion for 30 minutes, then DECREASE infusion dose by 2 (TWO) units/kg/hour PTT greater than 120 seconds: Hold infusion for 1 hour, then DECREASE infusion dose by 3 (THREE) units/kg/hour, Indications: Acute Coronary SyndromeIndications:Acu te Coronary Syndrome Rate/Dose Verify 11/20/2024 11:00 PM CDT 9.5 Units/kg/hr 11.22 mL/hr New Bag 11/20/2024 10:37 PM CDT 9.5 Units/kg/hr 11.22 m L/hr hydrALAZINE (APRESOLINE) injection 10 mg 10 mg, intravenous, Administer over 2 Minutes, Every 6 hours PRN, other, for sys>180 or dys>100, Starting on Wed11/21/24 at 1404, Indications: hypertensionIndications:hypertension metoclopramide (REGLAN) 5 mg/mL injection 10 mg 10 mg, intravenous, Every 6 hours PRN, nausea, Starting on Wed11/21/24 at 1404 Given 11/21/2024 2:39 PM CDT 10 m g metoprolol tartrate (LOPRESSOR) immediate release tablet 12.5 mg 12.5 mg, oral, Every 6 hours scheduled, First dose on Wed11/21/24 at 0115, Hold for SBP < 100 or HR < 60., Indications: cardiovascular diseaseIndications:cardiovascular disease Given 11/22/2024 1:11 PM CDT 12 .5 mg Given 11/22/2024 5:52 AM CDT 12.5 mg Given 11/21/2024 11:51 PM CDT 12.5 mg morphine injection 4 mg 4 mg, intravenous, Administer over 4 Minutes, Once, On Wed11/20/24 at 2224, For 1 dose Given 11/20/2024 10:29 PM CDT 4 mg nicotine (NICODERM CQ) 21 mg patch 24 hour 1 patch 1 patch, transdermal, Administer over 24 Hours, Daily, First dose on Wed11/21/24 at 1445, Apply a new patch every 24 hours to a clean, dry, hairless site on the upper arm or hip. Rotate site. Medication Applied 11/22/2024 8:26 AM CDT 1 patch Left Arm Medication Applied 11/21/2024 2:39 PM CDT 1 patch Left Arm oxyCODONE (ROXICODONE) tablet 5 mg 5 mg, oral, Every 6 hours PRN, 2nd line for pain, Starting on Wed11/21/24 at 1002, For 4 doses, Indications: PainIndications:Pain Given 11/22/2024 4:23 AM CDT 5 m g Given 11/21/2024 8:43 PM CDT 5 mg Given 11/21/2024 10:29 AM CDT 5 mg potassium chloride 40 mEq/520 mL in sodium chloride 0.9% (premix) 40 mEq 40 mEq, intravenous, at 130 mL/hr, Administer over 4 Hours, Once, On Wed11/21/24 at 0115, For 1 dose, Indications: hypokalemiaIndications:hypokale dilshad Rate/Dose Verify 11/21/2024 5:00 AM CDT 130 mL/hr Rate/Dose Verify 11/21/2024 4:00 AM CDT 130 mL/ hr Rate/Dose Verify 11/21/2024 3:00 AM CDT 130 mL/ hr potassium chloride ER (KLOR-CON) extended release tablet 40 mEq 40 mEq, oral, Once, On Wed11/21/24 at 0115, For 1 dose, Do not crush, chew, cut, dissolve, open or otherwise manipulate tablet/capsule. Given 11/21/2024 12:48 AM CDT 40 mEq rosuvastatin (CRESTOR) tablet 40 mg 40 mg, oral, Nightly, First dose on Wed11/21/24 at 2100, Indications: myocardial infarction preventionIndications:myocar dial infarction prevention Given 11/21/2024 8:43 PM CDT 40 mg sodium chloride 0.9% infusion Code/trauma/sedation continuous med, Starting on Wed11/20/24 at 2334, Intra-Procedure (CV) Rate/Dose Verify 11/21/2024 12:00 AM CDT 100 mL/hr New Bag 11/20/2024 11:34 PM CDT 100 mL/hr 100 mL/hr sodium chloride 0.9% infusion 100 mL/hr, intravenous, Continuous, Starting on Wed11/21/24 at 0115 Rate/Dose Verify 11/21/2024 8:00 AM CDT 100 mL/hr 100 mL/hr Rate/Dose Verify 11/21/2024 7:00 AM CDT 100 mL/hr 100 mL/ hr Rate/Dose Verify 11/21/2024 6:56 AM CDT 100 mL/hr 100 mL /hr ticagrelor (BRILINTA) tablet 60 mg 60 mg, oral, Once, On Wed11/20/24 at 2219, For 1 dose Given 11/20/2024 10:28 PM CDT 60 mg ticagrelor (BRILINTA) tablet 90 mg 90 mg, oral, 2 times daily, First dose on Wed11/21/24 at 0900, Indications: cardiovascular diseaseIndications:cardiovascular disease Given 11/22/2024 8:26 AM CDT 90 mg Given 11/21/2024 8:43 PM CDT 90 mg Given 11/21/2024 9:46 AM CDT 90 mg documented in this encounter Discontinued Medications Medication Sig Discontinue Reason Start Date End Da te ibuprofen (ADVIL,MOTRIN) 600 mg tablet Take 1 tablet (600 mg total) by mouth every 6 (six) hours as needed for pain for up to 30 doses Stop Taking at Discharge 01/13/2023 11/22/2024 acetaminophen (TYLENOL) 500 mg tablet Take 2 tablets (1,000 mg total) by mouth every 8 (eight) hours as needed for pain for up to 20 doses Stop Taking at Discharge 01/13/2023 11/22/2024 methocarbamoL (ROBAXIN) 500 mg tablet Take 1 tablet (500 mg total) by mouth 3 (three) times a day as needed for muscle spasms This medication may cause excessive sleepiness. Do not drink alcohol, take other sedating medications, drive a vehicle, until you know how this medication affects you. Stop Taking at Discharge 01/13/2023 11/22/2024 lidocaine (LIDODERM) 5 % Place 1 patch on the skin daily Remove & discard patch within 12 hours or as directed by MD. Stop Taking at Discharge 01/13/2023 11/22/2024 naproxen (NAPROSYN) 500 mg tablet Take 1 tablet (500 mg total) by mouth 2 (two) times a day as needed for pain Take with food. Stop Taking at Discharge 04/10/2023 11/22/2024 cyclobenzaprine (FLEXERIL) 10 mg tablet Take 1 tablet (10 mg total) by mouth 2 (two) times a day as needed for muscle spasms Stop Taking at Discharge 04/10/2023 11/22/2024 rosuvastatin (CRESTOR) 20 mg tablet Take 1 tablet (20 mg total) by mouth daily Stop Taking at Discharge 05/23/2024 11/22/2024 documented as of this encounter Active and Recently Administered Medications Times are shown in CDT. Scheduled Medication Order 11/20/2024 11/21/2024 11/22/2024 aspirin chewable tablet 81 mg 81 mg, oral, Daily, First dose on Wed11/22/24 at 1200 1311 (Given - Provider: Michela Castelan, BASILIO) aspirin enteric coated tablet 81 mg (CANCELED) 81 mg, oral, Daily, First dose on Wed11/21/24 at 0900, Recovery (CV), Do not crush, chew, cut, dissolve, open or otherwise manipulate tablet/capsule., Indications: cardiovascular disease 945 (Given - Provider: Adelaida Morocho RN) enoxaparin (LOVENOX) syringe 40 mg 40 mg, subcutaneous, Daily (for enoxaparin), First dose on Wed11/21/24 at 2100, Indications: Deep Vein Thrombosis Prevention 2043 (Given - Provider: Fe Tatum RN) heparin 5,000 unit/mL injection 4,000 Units (COMPLETED) 4,000 Units, intravenous, Once, On Wed11/20/24 at 2219, For 1 dose, Indications: Acute Coronary Syndrome 2228 (Given - Provider: Sofie Lund RN) metoprolol tartrate (LOPRESSOR) immediate release tablet 12.5 mg 12.5 mg, oral, Every 6 hours scheduled, First dose on Wed11/21/24 at 0115, Hold for SBP < 100 or HR < 60., Indications: cardiovascular disease 0048 (Given - Provider: Silvia Diaz RN)0616 (Given - Provider: Silvia Diaz RN)1208 (Given - Provider: Adelaida Morocho RN)1845 (Given - Provider: Zac Hudson)2351 (Given - Provider: Fe Tatum, BASILIO) 0552 (Given - Provider: Fe Tatum RN)1311 (Given - Provider: Michela Castelan, BASILIO) morphine injection 4 mg (COMPLETED) 4 mg, intravenous, Administer over 4 Minutes, Once, On Wed11/20/24 at 2224, For 1 dose 2228 (Given - Provider: Sofie Lund RN) nicotine (NICODERM CQ) 21 mg patch 24 hour 1 patch 1 patch, transdermal, Administer over 24 Hours, Daily, First dose on Wed11/21/24 at 1445, Apply a new patch every 24 hours to a clean, dry, hairless site on the upper arm or hip. Rotate site. 1439 (Medication Applied - Provider: Zac Hudson) 0811 (Medication Removed - Provider: Michela Castelan, BASILIO)0826 (Medication Applied - Provider: Michela Castelan RN)1335 (Due: Medication Removed - Provider: Automatic Discharge Provider - Comment: Time automatically adjusted from order being discontinued) potassium chloride 40 mEq/520 mL in sodium chloride 0.9% (premix) 40 mEq (COMPLETED) 40 mEq, intravenous, at 130 mL/hr, Administer over 4 Hours, Once, On Wed11/21/24 at 0115, For 1 dose, Indications: hypokalemia 0109 (New Bag - Provider: Silvia Diaz RN)0200 (Rate/Dose Verify - Provider: Silvia Diaz RN)0300 (Rate/Dose Verify - Provider: Silvia Diaz RN)0400 (Rate/Dose Verify - Provider: Silvia Diaz RN)0500 (Rate/Dose Verify - Provider: Silvia Diaz RN) potassium chloride ER (KLOR-CON) extended release tablet 40 mEq (COMPLETED) 40 mEq, oral, Once, On Wed11/21/24 at 0115, For 1 dose, Do not crush, chew, cut, dissolve, open or otherwise manipulate tablet/capsule. 0048 (Given - Provider: Silvia Diaz RN) rosuvastatin (CRESTOR) tablet 40 mg 40 mg, oral, Nightly, First dose on Wed11/21/24 at 2100, Indications: myocardial infarction prevention 2042 (Given - Provider: Fe Tatum RN) ticagrelor (BRILINTA) tablet 60 mg (COMPLETED) 60 mg, oral, Once, On Wed11/20/24 at 2219, For 1 dose 2227 (Given - Provider: Sofie Lund RN) ticagrelor (BRILINTA) tablet 90 mg 90 mg, oral, 2 times daily, First dose on Wed11/21/24 at 0900, Indications: cardiovascular disease 0946 (Given - Provider: Adelaida Morocho RN)2042 (Given - Provider: Fe Tatum, BASILIO) 08 (Given - Provider: Michela Castelan, BASILIO) Continuous Medication Order 11/20/2024 11/21/2024 11/22/2024 heparin in 0.45% sodium chloride 25,000 units/250 mL (100 units/mL) infusion (premix) (CANCELED) 0-33 Units/kg/hr 118.1 kg (0-38.973 mL/hr, rounded to 0-38.97 mL/hr), intravenous, Titrated, Starting on Wed11/20/24 at 2221, WEIGHT-BASED HEPARIN INFUSION Units/kg/hr. Max initial dose:1,000 units/hr. Titration Instructions- Adjust dose based on PTT Results STAT PTT timing: - Draw 6 hours after heparin infusion initiation - Draw 6 hours after every dose change until 2 consecutive PTTs are therapeutic - Once 2 consecutive PTTs are therapeutic, draw with daily labs until infusion is discontinued - - Restart every 6 hour lab draws and follow instructions accordingly if PTT is outside of therapeutic range PTT results: PTT less than 46 seconds: Bolus if ordered (see PRN bolus order) , then INCREASE infusion dose by 3 (THREE) units/kg/hour PTT 46 - 55 seconds: Bolus if ordered (see PRN bolus order), then INCREASE infusion dose by 2 (TWO) units/kg/hour PTT 56 - 65 seconds: No bolus, INCREASE infusion dose by 1 (ONE) unit/kg/hour PTT 66 - 100 seconds (therapeutic): No change PTT 101 - 110 seconds: No bolus, DECREASE infusion dose by 1 (ONE) unit/kg/hour PTT 111 - 120 seconds: Hold infusion for 30 minutes, then DECREASE infusion dose by 2 (TWO) units/kg/hour PTT greater than 120 seconds: Hold infusion for 1 hour, then DECREASE infusion dose by 3 (THREE) units/kg/hour, Indications: Acute Coronary Syndrome 7 (New Bag - Provider: Ying Amezquita RN - Comment: per MD Draper, initial rate to be 9.5u/kg/hr. Verified with , NICOLE, and multiple RNs)2300 (Rate/Dose Verify - Provider: Silvia Diaz RN)2303 (Stopped - Provider: Nereyda Olivares RN - Comment: Stopped per Dr Sin for procedure) sodium chloride 0.9% infusion (CANCELED) 100 mL/hr, intravenous, Continuous, Starting on Wed11/21/24 at 0115 0049 (New Bag - Provider: Silvia Diaz RN)0100 (Rate/Dose Verify - Provider: Silvia Diaz RN)0200 (Rate/Dose Verify - Provider: Silvia Diaz RN)0300 (Rate/Dose Verify - Provider: Silvia Diaz RN)0314 (New Bag - Provider: Silvia Diaz RN)0400 (Rate/Dose Verify - Provider: Silvia Diaz RN)0500 (Rate/Dose Verify - Provider: Silvia Diaz RN)0600 (Rate/Dose Verify - Provider: Silvia Diaz RN)0656 (Rate/Dose Verify - Provider: Silvia Diaz RN)0700 (Rate/Dose Verify - Provider: Adelaida Morocho RN)0800 (Rate/Dose Verify - Provider: Adelaida Morocho RN)0917 (Stopped - Provider: Adelaida Morocho RN) PRN Medication Order 11/20/2024 11/21/2024 11/22/2024 acetaminophen (TYLENOL) tablet 650 mg 650 mg, oral, Every 4 hours PRN, 1st line for pain, Starting on Wed11/21/24 at 1002 1029 (Given - Provider: Adelaida Morocho RN)1439 (Given - Provider: Zac Hudson)1846 (Given - Provider: Zac Hudson - Comment: groin site) 0423 (Given - Provider: Fe Tatum RN) fentaNYL (SUBLIMAZE) preservative free injection (CANCELED) Code/trauma/sedation medication, Starting on Wed11/20/24 at 2300, Intra-Procedure (CV) 2300 (Given - Provider: Hunter Watkins RN)2309 (Given - Provider: Hunter Watkins RN) heparin 1,000 unit/mL injection (CANCELED) Code/trauma/sedation medication, Starting on Wed11/20/24 at 2313, Intra-Procedure (CV) 2313 (Given - Provider: Hunter Watkins RN) heparin in 0.9% sodium chloride 1,000 units/500 mL (2 unit/mL) infusion (premix) (CANCELED) Code/trauma/sedation medication, Starting on Wed11/20/24 at 2256, Intra-Procedure (CV) 2256 (Given - Provider: Nino Sin MD) hydrALAZINE (APRESOLINE) injection 10 mg 10 mg, intravenous, Administer over 2 Minutes, Every 6 hours PRN, other, for sys>180 or dys>100, Starting on Wed11/21/24 at 1404, Indications: hypertension ioversoL (OPTIRAY 350) injection (CANCELED) Code/trauma/sedation medication, Starting on Wed11/20/24 at 2334, Intra-Procedure (CV) 2334 (Given - Provider: Nino Sin MD) lidocaine (XYLOCAINE) 10 mg/mL (1 %) injection (CANCELED) Code/trauma/sedation medication, Starting on Wed11/20/24 at 2302, Intra-Procedure (CV), Indications: Administration of Local Anesthesia 2302 (Given - Provider: Nino Sin MD) metoclopramide (REGLAN) 5 mg/mL injection 10 mg 10 mg, intravenous, Every 6 hours PRN, nausea, Starting on Wed11/21/24 at 1404 1439 (Given - Provider: Zac Hudson) midazolam (VERSED) 1 mg/mL preservative free injection (CANCELED) Administer over 2 Minutes, Code/trauma/sedation medication, Starting on Wed11/20/24 at 2300, Intra-Procedure (CV) 2300 (Given - Provider: Hunter Watkins RN) oxyCODONE (ROXICODONE) tablet 5 mg 5 mg, oral, Every 6 hours PRN, 2nd line for pain, Starting on Wed11/21/24 at 1002, For 4 doses, Indications: Pain 1029 (Given - Provider: Adelaida Morocho RN)2043 (Given - Provider: Fe Tatum RN) 0423 (Given - Provider: Fe Tatum RN) phenylephrine (ADRIANA-SYNEPHRINE) 1 mg/10 mL (100 mcg/mL) in sodium chloride 0.9% (premix) (CANCELED) Code/trauma/sedation medication, Starting on Wed11/20/24 at 2315, Intra-Procedure (CV) 2315 (Given - Provider: Hunter Watkins, BASILIO) sodium chloride 0.9% bolus (COMPLETED) Code/trauma/sedation continuous med, Starting on Wed11/20/24 at 2329, Intra-Procedure (CV) 2329 (New Bag - Provider: Hunter Watkins RN) sodium chloride 0.9% infusion (COMPLETED) Code/trauma/sedation continuous med, Starting on Wed11/20/24 at 2334, Intra-Procedure (CV) 2334 (New Bag - Provider: Hunter Watkins RN) 0000 (Rate/Dose Verify - Provider: Silvia Diaz RN) ticagrelor (BRILINTA) tablet (CANCELED) Code/trauma/sedation medication, Starting on Wed11/20/24 at 2318, Intra-Procedure (CV) 2318 (Given - Provider: Hunter Watkins RN) documented in this encounter Orders Medications Ordered That Rudy ht Not Have Been Administered Count Last Ordered Date First Ordered Date hydrALAZINE (APRESOLINE) injection 10 mg 1 11/21/2024 aspirin chewable tablet 324 mg 1 11/20/2024 fentaNYL (SUBLIMAZE) preserv ative free injection 1 11/20/2024 heparin 1,000 unit/mL injection 1 heparin 5,000 unit/mL inject ion 2,000 Units 1 11/20/2024 heparin 5,000 unit/mL inject ion 3,000 Units 11/20/2024 heparin 5,000 unit/mL inject ion 4,000 Units 1 11/20/2024 heparin in 0.9% sodium chlor sukhdeep 1,000 units/500 mL (2 unit/mL) infusion (premix) 11/20/2024 ioversoL (OPTIRAY 350) injection 11/21/19 lidocaine (XYLOCAINE) 10 mg/ mL (1 %) injection 1 11/20/2024 midazolam (VERSED) 1 mg/mL p reservative free injection 1 11/20/2024 phenylephrine (ADRIANA-SYNEPHRIN E) 1 mg/10 mL (100 mcg/mL) in sodium chloride 0.9% (premix) 1 11/20/2024 sodium chloride 0.9% bolus 1 11/20/2024 ticagrelor (BRILINTA) tablet 1 11/20/2024 ticagrelor (BRILINTA) tablet 120 mg 1 11/20 Nursing Count Last Ordered Date First Orde red Date APPLY 1 11/21/2024 NURSING COMMUNICATION 2 11/21/2024 TELEMETRY MONITORING 1 11/21/2024 TOBACCO CESSATION EDUCATION 1 11/21/2024 CHECK WITH MD 1 11/20/2024 Consult Count Last Ordered Date First Orde red Date IP CONSULT TO NUTRITION SERVICES 1 11/22/19 IP CONSULT TO RESPIRATORY CARE 1 11/21/2024 IP CONSULT TO SOCIAL WORK 1 11/21/2024 Admission Count Last Ordered Date First Orde red Date ADMIT TO INPATIENT 1 11/20/2024 Transfer Count Last Ordered Date First Orde red Date TRANSFER PATIENT TO NEW UNIT 1 11/21/2024 Discharge Count Last Ordered Date First Orde red Date DISCHARGE PATIENT 1 11/22/2024 CORE MEASURES Count Last Ordered Date First Ord ered Date REASON FOR NO ACEI OR ARB AT DISCHARGE 1 documented in this encounter Care Teams [employer] 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
--- OUTSIDE RECORDS SUMMARY | 2024-11-23 15:57 | XMS_ITS | Clinical Summary ---
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 180 Cap 3 7 Active metoclopramide (REGLAN) 5 MG Tablet Take 2 Tabs by mouth 2 times daily (with meals). 120 Tab 3 7 Active triamcinolone (KENALOG) 0.1 % Ointment Application Site: BEE STINGS 3 TIMES DAILY UNTIL HEALED 80 g 8 Active tamsulosin (FLOMAX) 0.4 MG Capsule Take 1 Cap by mouth daily. 90 Cap 9 Active HYDROcodone-acet aminophen (NORCO) 5-325 MG Tablet Take 1-2 Tabs by mouth every 4 hours as needed for Moderate or more severe pain. 20 Tab 9 Active ondansetron (ZOFRAN) 4 MG Tablet Take 1 Tab by mouth every 8 hours as needed for Nausea - 1st line. 10 Tab 9 Active HYDROcodone-acet aminophen (NORCO) 5-325 MG Tablet Take 1-2 Tabs by mouth every 4 hours as needed for Moderate or more severe pain. 20 Tab 1 Active famotidine (PEPCID) 20 MG Tablet Take 1 Tablet by mouth 2 times daily as needed for Heartburn. 30 Tablet 1 Active ondansetron (Zofran ODT) 4 MG TABLET DISPERSIBLE Take 1 Tablet by mouth every 8 hours as needed for Nausea - 1st line. 15 Tablet 1 Active prochlorperazine (COMPAZINE) 5 MG Tablet Take 1-2 Tablets by mouth every 6 hours as needed for Nausea - 2nd line. 20 Tablet 1 Active Active Problems Problem Noted Date Diagnosed Date Tinnitus of right ear 07/20/2016 Family History Medical History Relation Name Comments High Cholesterol Father Relation Name Status Comments Father Alive Mother Alive Social History Tobacco Use Types Packs/Day Years Used Date Smoking Tobacco: Some Days Cigarettes 0.3 13 Smokeless Tobacco: Never Alcohol Use Standard Drinks/Week Comments No 0 (1 standard drink = 0.6 oz pur e alcohol) none Sex and Gender Information Value Date Recorded Sex Assigned at Not on file Legal Sex Male 7:24 PM CDT Gender Identity Not on file Sexual Orientation Not on file Occupation Industry Job Start Date Job End Date disabled 0 Not on file Not on file Not on file Last Filed Vital Signs Vital Sign Reading Time Taken Comments Blood Pressure 130/88 04/02/2024 10:59 PM CDT Pulse 102 04/02/2024 10:59 PM CDT Temperature 36.8 C (98.2 F) 04/02/2024 10:59 PM CDT Respiratory Rate 18 04/02/2024 10:59 PM CDT Oxygen Saturation 100% 04/02/2024 10:59 PM CDT Inhaled Oxygen Concentration - - Weight 113.4 kg (250 lb) 04/02/2024 10:59 PM CDT Height 172.7 cm (5' 8 ) 04/02/2024 10:59 PM CDT Body Mass Index 38.01 04/02/2024 10:59 PM CDT Plan of Treatment Health Maintenance Due Date Last Done Comments Hepatitis C Virus (HCV) Screening 1992 Pneumococcal Immunization Combined (1 of 2 - PCV) 10/02/2011 Influenza Immunization (#1) 03/05/202406/04, 06/13/2014, 05/19/2007, Additional history exists SARS-COV-2 Immunization ( - season) 2024 Respiratory Syncytial Virus (RSV) Immunization (Adult) (1 - 1-dose 75+ series) 10/02/2067 Hepatitis B Immunization Completed 993, 05/05/1993, 01/30/1993, Additional history exists DTaP/Tdap/Td Immunization Discontinued 2005, 10/28/2005, 05/15/2004, Additional history exists TdaP Immunization Completed 05/30/2006, 10/28/2005 Meningococcal Immunization (ACWY) Aged Out No longer eligible based on patient's age to complete this topic Rotavirus Immunization Aged Out No lo nger eligible based on patient's age to complete this topic Insurance [place], [place] [id number] MEDICAID [employer] Care Teams Escalator Mechanic Relationship Specialty Start Date End Date Ramesh Wallace MD [address] [place] [address] PCP - General Internal Medicine 04/02/24 Lyric Mcnair APRN, SCHO[employer] PROGRAM ASSOCIATE Nurse Practitioner Advanced Practice Nurse 08/18/16
[2024-11-23 16:00] VITALS: BP 133/81; PULSE 103; RESP 20; TEMP 36.3; O2SAT 98
--- NOTE | 2024-11-23 16:25 | ED.LOWEXIN ---
HPI - Extremity Injury (Lower) General Chief Complaint: Extremity Injury, Lower Stated Complaint: pain in groin area Time Seen by Provider: 11/23/24 16:20 Source: patient, RN notes reviewed and old records reviewed Mode of arrival: ambulatory Limitations: no limitations History of Present Illness HPI Narrative: 34 year old male accompanied by sister presents to [facility] care with complaints of soreness to his right groin region reporting that he had a heart attack on the ,he was taken to [facility] by ambulance and had emergency cardiac catheterization and heart stent placed. Patient reports that his right groin is sore especially with movement and ambulation. He states that they did not send him home without any pain medication. He states that he called the [facility] office was told to call PCP and they told him to call cardiology. Patient reports pain to site of cardiac catheterization, minimal bruising noted with no bulging or any erythema at catheterization insertion site.Patient has strong pedal and posterior pulses to right foot, strong femoral pulse. Patient reports that they told him to not take Tylenol. MD complaint: other (pain to right groin area post cardiac catheterization.) Onset (ago): day(s) (3days) Severity scale (1-10): 6 Treatments prior to arrival: other Related Data Home Medications ?Medication ?Instructions ?Recorded ?Confirmed ?Last Taken ?Type aspirin 81 mg chewable tablet 11/23/24 Unknown History metoprolol tartrate 25 mg tablet mg 11/23/24 Unknown History rosuvastatin 40 mg tablet mg 11/23/24 Unknown History ticagrelor 90 mg tablet (Brilinta) mg 11/23/24 Unknown History Allergies Allergy/AdvReac Type Severity Reaction Status Date / Time cefaclor (From [facility]) Allergy Unknown Unknown Verified 11/23/24 16:12 cephalexin Allergy Unknown Unknown Verified 11/23/24 16:12 Review of Systems Review of Systems: CONSTITUTIONAL: Denies fever, chills, or sweats. EYES: Denies visual changes, redness, or discharge. ENT: Denies rhinorrhea, congestion, sore throat, or otalgia patient does have decreased hearing CARDIOVASCULAR: Denies chest pain, palpitations, or edema. RESPIRATORY: Denies cough or dyspnea. GASTROINTESTINAL: Denies abdominal pain, nausea, vomiting, or diarrhea. GENITOURINARY: Denies dysuria or hematuria. SKIN: Denies rash or itching. MUSCULOSKELETAL: Denies back pain, joint pain, or myalgia, reports pain to right groin post cardiac catheterization, reports pain with ambulation and movement. NEUROLOGIC: Denies headache, numbness, or weakness. PSYCHIATRIC: Denies anxiety or depression. All systems reviewed & are unremarkable except as noted in HPI and below PMFSH Past Medical History Medical History (Updated 11/23/24 @ 19:27 by Nahomy Valderrama NP) Hearing deficit Myocardial infarction Hyperlipidemia Surgical History Surgical History H/O heart artery stent H/O cardiac catheterization Family History Family History Mother Diabetes mellitus Cerebrovascular accident Father Cerebrovascular accident Social History Social History Smoking packs per day: 0.5 Smoking cigarettes per day: 10.0 Years smoked: 17 Smoking pack-years: 8.50 Smoking status: Former smoker Tobacco type: cigarettes Alcohol intake: never Substance use: never Do You Feel Safe in your Home?: Yes Lack of Transportation: No Lack of Food: Never True Current Housing: I Have Housing Concerned About Future Housing: No Difficulty Paying Gas/Electric Bills: No Difficulty Paying for Meds: No Currently Unemployed: No Education: High School Diploma/GED Difficulty w/ Childcare or Family Care: No Living arrangements: with family Gender identity (if verbalized by the patient): Male Spiritual care concerns: No Comments At time of signature, agree with nursing past medical, surgical, social and family history. There is no relevant family history pertinent to the presenting complaint Exam Narrative: GENERAL: Well-appearing, well-nourished, and in no acute distress.some pain voiced at site where cardiac cath performed in right groin. HEAD: Normocephalic, atraumatic. EYES: PERRLA and EOMI. ENT: Nares clear, no rhinorrhea or epistaxis. Mucous membranes moist. NECK: Supple. no lymphadenopathy CHEST: Clear to auscultation. No respiratory distress. SAO2 98% on room air reports no chest pain or any shortness of breath HEART: Regular rate and rhythm. No murmur heard. Normal peripheral pulses. ABDOMEN: Soft, nontender, nondistended, normal active bowel sounds. EXTREMITIES: Normal range of motion. No edema no swelling or acute redness at right groin, strong pulses to right leg and foot, femoral pulse strong, small amount of bruising.no hematoma. SKIN: Warm, dry, no rash. NEURO: No focal deficits. Alert and oriented x3. Course Course Emergency Course: Patient is aware of diagnosis, understands and agrees to treatment plan.? Anticipatory guidance given.? Patient agrees to follow-up as directed and is aware of reasons to seek care at the emergency department. Portions of this record may have been created with voice recognition software Level of Care: Express Care Visit Vital Signs Vital signs: Vital Signs Temperature 36.3 C L 11/23/24 16:00 Pulse Rate 103 H 11/23/24 16:00 Respiratory Rate 20 11/23/24 16:00 Blood Pressure 133/81 11/23/24 16:00 Pulse Oximetry 98 11/23/24 16:00 Oxygen Delivery Room Air 11/23/24 16:00 Temperature 36.3 C L 11/23/24 16:00 Pulse Rate 103 H 11/23/24 16:00 Respiratory Rate 20 11/23/24 16:00 Blood Pressure 133/81 11/23/24 16:00 Pulse Oximetry 98 11/23/24 16:00 Oxygen Delivery Room Air 11/23/24 16:00 Reviewed MDM - Extremity Injury (Lower) Differential Diagnosis Differential diagnosis: Likely other (right groin pain, discomfort post cardiac catheterization,) Medical Records Attestation: I reviewed the patient's medical records. Critical Care Time Critical Care Time Critical Care Time: No Discharge Plan Discharge Clinical Impression: Right groin pain, Status post cardiac catheterization Patient Disposition: Home Condition: Stable Instructions: Groin Pain (ED), Heart Catheterization (DC) Additional Instructions: Use the medication as provided for severe pain--caution each tablet contains 325 mg of Tylenol--the maximum dose of Tylenol is 4000 mg in 24 hours. This medication may cause constipation consider starting a laxative at this time Follow-up with PCP for follow-up as recommended Follow-up with PCP if further problems or concerns Ice to the area 20-30 minutes 4-6 times a day Elevate above heart If continued pain any noted swelling go to the emergency room for further evaluation If your symptoms persist, change or worsen significantly before you can contact your personal physician then please, without delay, go to the emergency department for further evaluation. Follow-up with PCP in 7-10 days or sooner if needed Follow up with PCP soon in regards to your blood pressure which is elevated above threshold for referral. Blood pressure above 120/80 may indicate pre-hypertension. 133/81 Patient Language: Yi Prescriptions: New hydrocodone-acetaminophen 5-325 mg tablet 1 tablet PO Q6H PRN (Reason: pain) Qty: 10 0RF No Action aspirin 81 mg tablet,chewable rosuvastatin 40 mg tablet metoprolol tartrate 25 mg tablet ticagrelor [Brilinta] 90 mg tablet Follow-up/Referrals: PHYSICIAN,QUALITY CONTROL PROJECTIONIST [Primary Care Provider] - Time of Disposition: 16:38 Quality Wild Coma Scale Eyes: Open Verbal: Oriented and Alert Motor: Follows Commands Wild Coma Total Score: 15
== END 2024-11-23 16:50 | disposition home or self-care (01) ==
PROVIDERS: Emergency Provider Registered Nurse
DX: T82.848A Pain due to vascular prosthetic devices, implants and grafts, initial encounter (principal); I25.2 Old myocardial infarction; E78.5 Hyperlipidemia, unspecified; Z95.5 Presence of coronary angioplasty implant and graft; Z79.82 Long term (current) use of aspirin; Z87.891 Personal history of nicotine dependence
CPT/HCPCS: 99213; G0463

== ENCOUNTER 2025-03-26 13:45 | Outpatient (RCR) | payer OTHER, SELFPAY | END 2025-03-26 23:59 | disposition home or self-care (01) | LOC: ANHCPREHAB 13:45 | PROVIDERS: Visit Provider Internal Medicine | DX: Z51.89 Encounter for other specified aftercare (principal); Z98.61 Coronary angioplasty status | CPT/HCPCS: 93798 ==